=== PATIENT | male | born 1960 | race Hispanic/Latino ===

== ENCOUNTER 2016-11-26 00:07 | Inpatient (IN) | payer OTHER ==
[2016-11-26] MEDS ORDERED: ATROVENT IH ONE (00:58)
[2016-11-26] MEDS ORDERED: TYLENOL PO ONE (00:59)
[2016-11-26] MEDS ORDERED: PROVENTIL IH ONE (00:59)
[2016-11-26] MEDS ORDERED: KETALAR IV ONE ×2 (00:59→01:48)
[2016-11-26] MEDS ORDERED: ROCEPHIN/NS 1 GM/50 ML 50 ML IV ONE (01:01)
--- NOTE | 2016-11-26 01:07 | Emergency Department Report ---
ED General Adult HPI - General Chief complaint: Dyspnea/Respdistress Stated complaint: CHEST PAIN Time Seen by Provider: 11/26/16 00:38 Source: patient, EMS (ems notes not available at time of chart dictation), RN notes reviewed Mode of arrival: Stretcher Limitations: Physical Limitation - History of Present Illness Initial comments: This is a 56-year-old male, whom I have evaluated in the past. Has a past medical history of nonischemic cardiomyopathy, ejection fraction of 10-15%, COPD , hypertension, CVA, renal insufficiency. Patient presents to the ER complaining of chest pain, shortness of breath, back pain, fever and weakness. He reports that he is not currently on hospice therapy. Symptoms are constant. They have no exacerbating or relieving factors. -: Gradual Location: chest, back Severity scale (0 -10): 10 Quality: burning, stabbing, aching Consistency: constant Improves with: none Worsens with: none Associated Symptoms: chest pain, cough, fever/chills, loss of appetite, shortness of breath, weakness - Related Data Previous Rx's Medication Instructions Recorded Last Taken Type Aspirin [Aspirin TAB] 325 mg PO QDAY #30 tablet 06/13/16 Unknown Rx Furosemide [Lasix TAB] 40 mg PO QDAY #30 tablet 06/25/16 Unknown Rx Lisinopril [Zestril TAB] 20 mg PO QDAY #30 tablet 06/25/16 Unknown Rx Metoprolol [Lopressor TAB] 25 mg PO BID #60 tablet 06/25/16 Unknown Rx ISOSORBIDE MONOnitrate [Imdur ER] 30 mg PO QDAY #30 tablet 09/11/16 1 Day Ago Rx Lisinopril [Zestril TAB] 20 mg PO DAILY #30 tablet 09/11/16 1 Day Ago Rx Prednisone [predniSONE 10 mg 10 mg PO .TAPER #1 tab.ds.pk 09/11/16 1 Day Ago Rx (6-Day Pack, 21 Tabs)] Furosemide [Lasix TAB] 40 mg PO BID #60 tablet 09/16/16 Unknown Rx Furosemide [Lasix TAB] 40 mg PO 0600,1800 tablet 10/20/16 Unknown Rx oxyCODONE /ACETAMINOPHEN [Percocet 1 tab PO Q6H PRN #20 tablet 10/20/16 Unknown Rx 5/325 mg] Allergies Allergy/AdvReac Type Severity Reaction Status Date / Time No Known Allergies Allergy Unverified 02/25/16 10:55 ED Review of Systems ROS: Stated complaint: CHEST PAIN Other details as noted in HPI Constitutional: fever, malaise, weakness Eyes: denies: vision change ENT: denies: epistaxis Respiratory: cough, wheezing Cardiovascular: chest pain Gastrointestinal: denies: vomiting Genitourinary: as per HPI Musculoskeletal: back pain Skin: denies: lesions Neurological: weakness Psychiatric: anxiety ED Past Medical Hx - Past Medical History Hx Hypertension: Yes Hx CVA: Yes Hx Congestive Heart Failure: Yes Hx Diabetes: No Hx Renal Disease: Yes Hx Arthritis: Yes Hx Asthma: Yes Hx COPD: Yes Hx HIV: No Additional medical history: Urinary retention - Surgical History Hx Cholecystectomy: Yes Additional Surgical History: Hernia, - Social History Smoking Status: Never Smoker Substance Use Type: None - Medications Home Medications: Home Medications Medication Instructions Recorded Confirmed Last Taken Type Aspirin [Aspirin TAB] 325 mg PO QDAY #30 tablet 06/13/16 10/08/16 Unknown Rx Furosemide [Lasix TAB] 40 mg PO QDAY #30 tablet 06/25/16 10/08/16 Unknown Rx Lisinopril [Zestril TAB] 20 mg PO QDAY #30 tablet 06/25/16 10/08/16 Unknown Rx Metoprolol [Lopressor TAB] 25 mg PO BID #60 tablet 06/25/16 10/08/16 Unknown Rx ISOSORBIDE MONOnitrate [Imdur ER] 30 mg PO QDAY #30 tablet 09/11/16 09/15/16 1 Day Ago Rx Lisinopril [Zestril TAB] 20 mg PO DAILY #30 tablet 09/11/16 09/15/16 1 Day Ago Rx Prednisone [predniSONE 10 mg 10 mg PO .TAPER #1 tab.ds.pk 09/11/16 09/15/16 1 Day Ago Rx (6-Day Pack, 21 Tabs)] Furosemide [Lasix TAB] 40 mg PO BID #60 tablet 09/16/16 Unknown Rx Furosemide [Lasix TAB] 40 mg PO 0600,1800 tablet 10/20/16 Unknown Rx oxyCODONE /ACETAMINOPHEN [Percocet 1 tab PO Q6H PRN #20 tablet 10/20/16 Unknown Rx 5/325 mg] ED Physical Exam - General Limitations: Physical Limitation General appearance: alert, in distress - Head Head exam: Present: atraumatic, normocephalic - Eye Eye exam: Present: normal appearance - ENT ENT exam: Present: mucous membranes dry - Neck Neck exam: Present: normal inspection, full ROM. Absent: tenderness, meningismus - Respiratory Respiratory exam: Present: wheezes, rales, rhonchi. Absent: respiratory distress - Cardiovascular Cardiovascular Exam: Present: regular rate, normal rhythm, normal heart sounds. Absent: bradycardia, tachycardia, irregular rhythm, systolic murmur, diastolic murmur, rubs, gallop - GI/Abdominal GI/Abdominal exam: Present: soft, normal bowel sounds. Absent: distended, tenderness, guarding, rebound, rigid, pulsatile mass - Rectal Rectal exam: Present: deferred - Extremities Exam Extremities exam: Present: normal inspection, full ROM, normal capillary refill , pedal edema. Absent: calf tenderness - Back Exam Back exam: Present: normal inspection, full ROM, paraspinal tenderness. Absent : tenderness, CVA tenderness (R), CVA tenderness (L), muscle spasm - Neurological Exam Neurological exam: Present: alert, other (Extraocular movements intact. Tongue midline. No facial droop. Facial sensation intact to light touch in the V1, V2 , V3 distribution bilaterally. 5 and 5 strength in 4 extremities.. Sensation is intact to light touch in 4 extremities.). Absent: motor sensory deficit - Psychiatric Psychiatric exam: Present: anxious - Skin Skin exam: Present: warm, dry, intact, normal color. Absent: rash ED Course Vital Signs 11/26/16 11/26/16 11/26/16 00:31 00:59 01:45 Temperature 98.4 F 100.8 F H Pulse Rate 83 Pulse Rate [ 93 H Anterior Bilateral] Respiratory 16 Rate Respiratory 18 Rate [Anterior Bilateral] Blood Pressure 169/88 O2 Sat by Pulse 99 99 Oximetry 11/26/16 02:42 Temperature Pulse Rate Pulse Rate [ 97 H Anterior Bilateral] Respiratory Rate Respiratory 18 Rate [Anterior Bilateral] Blood Pressure O2 Sat by Pulse Oximetry - Reevaluation(s) Reevaluation #1: 11/26/16 01:04 Differential diagnosis: COPD exacerbation, asthma exacerbation, pneumonia, acute coronary syndrome, urinary tract infection Assessment and plan: 56-year-old male with fever to 100.8, respiratory distress , chest pain and back pain. Influenza swab is pending. Laboratory studies, chest x-ray, urinalysis, blood cultures pending. He will be treated empirically with albuterol, Atrovent, steroids, ceftriaxone, acetaminophen, and ketamine, 0.3 mg/kg IV for pain. The patient reports that he is not currently hospice. He states he is amenable to chest compressions, CPR, and intubation if needed. Reevaluation #2: 11/26/16 04:16 CT scan demonstrates discitis at T8 to T9, right pleural effusion, basilar atelectasis, infiltrate. Urinalysis suggests urinary tract infection. Hospital physician, Dr Hankins. accepts the patient to his service. Request vancomycin. He will order infectious disease consult. ED Medical Decision Making - Lab Data Result diagrams: 11/26/16 00:58 11/26/16 00:58 Vital Signs 11/26/16 11/26/16 00:31 00:59 Temperature 98.4 F 100.8 F H Pulse Rate 83 Respiratory 16 Rate Blood Pressure 169/88 O2 Sat by Pulse 99 99 Oximetry - EKG Data 11/26/16 01:06 normal sinus, 90 bpm, borderline left axis deviation, atrial enlargement, poor all with progression, QTC 496 ms, abnormal EKG, not morphologically consistent with STEMI, nonspecific changes when compared to prior EKG from 10/08/2060 - Radiology Data Radiology results: image reviewed interpreted by me: X-ray chest demonstrates cardiomegaly, pulmonary effusions, CHF ct chest: no PE +discitis + infiltrate Critical care attestation.: If time is entered above; I have spent that time in minutes in the direct care of this critically ill patient, excluding procedure time. ED Disposition Clinical Impression: Diskitis, Chest pain, Acute febrile illness, COPD exacerbation Disposition: OP ADMITTED IP TO THIS HOSP Is pt being admited?: Yes Does the pt Need Aspirin: Yes Condition: Stable Instructions: Chest Pain (ED), Chronic Obstructive Pulmonary Disease (ED) Referrals: PRIMARY CARE, [Primary Care Provider] - 3-5 Days
[2016-11-26 01:28] LABS: Basophils % (Auto) 1.2 % (0.0-1.8); Eosinophils % (Auto) 1.8 % (0.0-4.3); Hematocrit 44.3 % (35.5-45.6); Mean Corpuscular HGB Conc 32 % (32-34); Mean Corpuscular Hemoglobin 27 pg (28-32); Mean Corpuscular Volume 85 fl (84-94); Platelet Count 331 K/mm3 (140-440); Red Blood Count 5.24 M/mm3 (3.65-5.03); White Blood Count 14.4 K/mm3 (4.5-11.0)
[2016-11-26 01:44] LABS: Red Cell Distribution Width 20.3 % (13.2-15.2)
[2016-11-26 01:45] LABS: Blood Urea Nitrogen 14 mg/dL (9-20); Calcium 8.9 mg/dL (8.4-10.2); Carbon Dioxide 30 mmol/L (22-30); Chloride 99.5 mmol/L (98-107); Glucose 115 mg/dL (75-100); Potassium 3.4 mmol/L (3.6-5.0); Sodium 143 mmol/L (137-145)
[2016-11-26 01:47] LABS: Anion Gap 17 mmol/L
[2016-11-26 01:57] LABS: INR 1.02 (0.87-1.13); Partial Thromboplastin Time 29.7 Sec. (24.2-36.6)
[2016-11-26 02:58] LABS: Cholesterol 150 mg/dL (50-199); HDL Cholesterol 38 mg/dL (40-59); LDL Cholesterol,Direct 81 mg/dL (50-130); Triglycerides 155 mg/dL (2-149)
[2016-11-26] MEDS ORDERED: NACL ONE (03:21)
[2016-11-26 03:30] LABS: Bacteria,Urine 1+ /HPF (Negative); Bilirubin,Urine NEG (Negative); Blood,Urine LG (Negative); Ketones,Urine NEG (Negative); Leukocyte Esterase,Urine SM (Negative); Mucus,Urine FEW /HPF; Nitrite,Urine POS (Negative)
[2016-11-26 03:42] LABS: RBC,Urine > 182.0 /HPF (0.0-6.0)
--- NOTE | 2016-11-26 03:58 | Cat Scan Report ---
FINAL REPORT EXAM: CT ANGIO CHEST HISTORY: cp sob fever TECHNIQUE: CTA chest with IV contrast. MIP and MPR images. PRIORS: 08/08/2016 FINDINGS: No thoracic aortic aneurysm or dissection seen. Visualized portions of the upper abdomen show no significant abnormality. No pulmonary embolism seen. No pathologically enlarged lymph nodes seen. Right basilar atelectasis or infiltrate. Moderate size right pleural effusion. There are compression fractures from T6-T9, which were seen previously. Additionally at T9, there is extensive vertebral body destruction involving mostly the upper endplate, there is some destruction of the lower endplate of T8 as well which is new. Extensive paraspinal edema and abnormal soft tissue, compatible with discitis. Recommend follow-up MRI with gadolinium for further characterization. IMPRESSION: 1. Discitis, new since the prior study at T8-T9. Extensive paraspinal abnormal soft tissue, no discrete abscess. Recommend follow-up MRI with gadolinium of the thoracic spine. 2. Right pleural effusion, right basilar atelectasis or infiltrate.
[2016-11-26] MEDS ORDERED: VANCOMYCIN VIAL IV ONE (04:04)
[2016-11-26] MEDS ORDERED: MORPHINE IV ONE (04:04)
--- NOTE | 2016-11-26 04:51 | Event Note ---
Date: 11/26/16 See H/p in reports Acute Diskitis-T8/T9 Fever/Mid back pain Copd exacerbation UTI CHF HTN CAD general manager in training consult for placement
[2016-11-26] MEDS ORDERED: VANCOMYCIN PHARMACY TO DOSE IV SCH (05:00)
[2016-11-26] MEDS ORDERED: DUONEB 0.5 MG-3 MG/3 ML SOLN IH PRN (05:11)
[2016-11-26] MEDS ORDERED: PROVENTIL IH PRN (05:13)
[2016-11-26] MEDS ORDERED: VANCOMYCIN VIAL 1,000 MG in NACL 0.9% 250ML 250 ML IV SCH (06:00)
[2016-11-26] MEDS ORDERED: LASIX ONE ×2 (06:05→10:10)
[2016-11-26] MEDS ORDERED: SUBLIMAZE ONE (06:10)
[2016-11-26] MEDS: K-DUR PO SCH ×2 (06:29→18:25)
[2016-11-26] MEDS: VANCOMYCIN VIAL 1,250 MG in NACL 0.9% 250ML 250 ML IV SCH ×2 (06:29→18:51)
[2016-11-26] MEDS: LASIX PO SCH ×2 (06:29→18:23)
[2016-11-26] MEDS ORDERED: SUBLIMAZE IV ONE (06:49)
--- NOTE | 2016-11-26 08:09 | History and Physical Report ---
CHIEF COMPLAINT: 1. Increasing shortness of breath for 2 days. 2. Increasing back pain, especially midback pain for the last 3-4 days. 3. Low grade fever present. HISTORY OF PRESENT ILLNESS: A 56-year-old male with multiple medical problems including hypertension, coronary artery disease, COPD and CHF, was on hospice till recently. He discharged himself from hospice 2 days ago. The patient has cardiomyopathy and ejection fraction of 10-15% along with COPD and hypertension. Comes to the ER because of increasing shortness of breath and severe back pain associated with low grade fever for the past 4-5 days, moreso for the last 2 days. The patient stated that he has not discharged himself from hospice therapy. Midback pain is about 10 on a scale of 1-10. No exacerbating or relieving factors. Wants something strong for pain management. On Percocet 5/325 mg p.o. q.6h. p.r.n. till now. Fever in the range of 99-101. Wheezing is present. PAST MEDICAL HISTORY: As mentioned, significant for hypertension, cerebrovascular accident, congestive heart failure, COPD, urinary retention in the past, and asthma. PAST SURGICAL HISTORY: Cholecystectomy and hernia. SOCIAL HISTORY: He used to be a smoker. FAMILY HISTORY: Significant for hypertension. CURRENT MEDICATIONS: Aspirin 325 mg p.o. daily, Lasix 40 mg p.o. daily, lisinopril 20 mg p.o. daily, metoprolol 25 mg b.i.d., isosorbide mononitrate 30 mg p.o. daily, lisinopril 20 mg p.o. daily, prednisone 10 mg p.o. daily, Lasix 40 mg twice a day in the past, and Percocet 5/325 mg p.o. q.6h. p.r.n. REVIEW OF SYSTEMS: Significant for; CONSTITUTIONAL: Low-grade fevers and severe midback pain present. No weight loss. HEENT: No sore throat. No postnasal drip. No diplopia. No ear pain. CVS AND RESPIRATORY: Shortness of breath on minimal exertion present. Slight wheezing present. No chest pain. No PND attacks. No orthopnea. GASTROINTESTINAL: No nausea, no vomiting, no diarrhea. MUSCULOSKELETAL: No joint pains. BACK: Has severe midback pain, 10/10. DEVELOPER RELATIONS MANAGER: No syncope, no seizures. PSYCHIATRIC: The patient is anxious, but not depressed. No homicidal or suicidal ideation. SKIN: No rashes. HEMATOLOGY AND LYMPHATICS: No easy bruising. No lymphadenopathy. A 14-point review of systems is done, otherwise negative. The main component of review of systems positive however for shortness of breath and midback pain with low grade fever. PHYSICAL EXAMINATION: GENERAL: Middle-aged male, looks older than his age. VITAL SIGNS: Temperature 100.8, blood pressure is 169/88, respiratory rate is 16, pulse is 93. HEENT: Unremarkable. Pupils equal and reactive. NECK: Supple, no lymphadenopathy, no thyromegaly. CHEST AND LUNGS: Bilateral rhonchi present both expiratory and inspiratory. CVS: S1, S2 heard. No gallop, no murmur, no rub. Apical impulse in left fifth intercostal space and midclavicular line. ABDOMEN: Soft and benign. No hepatosplenomegaly. No guarding, no rigidity. MUSCULOSKELETAL: Tenderness in the midback around T7, T8, T9 region present. EXTREMITIES: Good pedal pulses. No pedal edema. DEVELOPER RELATIONS MANAGER: Alert and oriented x 4, nonfocal exam. SKIN: Normal. LABORATORY DATA: Significant for white count of 14,400. Potassium is 3.4, BUN and creatinine is 14 and 0.7, glucose is 115. EKG shows normal sinus rhythm, heart rate of 90 per minute, left axis deviation, atrial enlargement, QTC 496 milliseconds. Abnormal EKG, not morphologically consistent with STEMI. Nonspecific changes when compared to prior EKG from 10/08/2016. CT of the chest shows T8-T9 discitis and right pleural effusion, basilar atelectasis/infiltrate. Urinalysis suggests high WBC count, around 99.0. Urine RBC more than 182. CT angiogram incidentally shows compression fractures from T6-T9, which were seen previously. Additionally at T9, there is extensive vertebral body distraction involving mostly the upper endplate. There is some distraction of the lower endplate of T8 as well, which is now an extensive paraspinal edema and abnormal soft tissue compatible with discitis. ASSESSMENT AND PLAN: 1. T8/T9 discitis. Had symptoms of midback pain and fever consistent with a diagnosis of discitis. The patient was started on IV vancomycin 1 gram q.12h. Also Rocephin incidentally for the urinary tract infection. We will consult ID for further help with the treatment of discitis. The question is whether to involve the Neurosurgery for the discitis, but will defer to ID at this point. 2. Chronic obstructive pulmonary disease exacerbation. The patient was started on DuoNebs and low dose Solu-Medrol of 40 mg q.8h. Also, started on Rocephin 2 grams IV piggyback q.24h. 3. Urinary tract infection. Same Rocephin 2 grams IV piggyback q.24h. to continue. 4. Congestive heart failure. The patient on Lasix 40 mg q.12h. There is no CHF exacerbation. We will continue Lasix at 40 mg q.12h. 5. Hypertension. Continue lisinopril 20 mg p.o. daily. 6. Coronary artery disease. Continue isosorbide mononitrate. 7. Hypertension. Continue metoprolol and lisinopril. Lisinopril 20 mg and metoprolol 25 mg twice a day. 8. Deep venous thrombosis prophylaxis. Lovenox 40 mg subcutaneous daily. 9. Pain management. The patient started on Dilaudid 1 mg q.3h. p.r.n. for control of pain. The patient is severe pain secondary to discitis. DISCHARGE PLANNING. The patient was in hospice before he discharged himself from hospice. Case management to look into further options about placement. JOB# [id number] DAY/ALEJANDRO
--- NOTE | 2016-11-26 08:54 | Admit Criteria Form ---
Admission Criteria Documentation: COPD Clinical Indications for Admission to Inpatient Care (Place 'X' for any and all applicable criteria): Admission is indicated for ANY ONE of the following (1)(2)(3): [ ]I. Acute exacerbation by high-risk comorbidity (e.g., pneumonia, dysrhythmia, heart failure, pleural effusion, pneumothorax) or severe underlying COPD (e.g., steroid dependent) [X ]II. Inpatient admission required rather than observation care (see Chronic Obstructive Pulmonary Disease: Observation Care) because of ANY ONE of the following: [X ]a) New or pre-existing signs or symptoms of COPD (eg, dyspnea or Tachypnea at rest or with minimal activity) that persist despite outpatient and observation care treatment [ ]b) New-onset hypoxemia (room air SaO2 less than 90%, PO2 less than 60 mm Hg (8.0 kPa)) that persists despite outpatient and observation care treatment [ ]c) Worsening of pre-existing hypoxemia (eg, new or increased requirement for supplemental oxygen to maintain oxygenation at baseline level) that persists despite outpatient and observation care treatment, with oxygen treatment needs performable only in acute inpatient setting [ ]d) Hypercarbia (PCO2 greater than 40 mm Hg (5.3 kPa))-induced respiratory acidosis (pH less than 7.35) that persists despite outpatient and observation care treatment [ ]e) Supplemental oxygen or respiratory treatments for over 24 hours that are performable only in acute inpatient setting [ ]f) Chest tube placement with active evacuation (e.g., suction, drainage) (5) [ ]g) Other condition, treatment or monitoring requiring inpatient admission [ ]III. Planned invasive surgical or diagnostic procedures requiring acute- care hospitalization [ ]IV. Acute respiratory failure (e.g., uncompensated hypercarbia, severe hypoxemia) [ ]V. Severe comorbid condition (e.g., severe steroid myopathy, acute vertebral fracture) that has acutely worsened pulmonary function [ ]. Confusion state, lethargy, obtundation, stupor or coma Extended stay beyond goal length of stay may be needed for (31)(32): [ ]a ) Respiratory Failure. [ ]b) Severe or persisting hypoxemia or hypercarbia [ ]c) Severe or persistent dyspnea [ ]d) Comorbidities (e.g. chronic heart failure, atrial fibrillation with rapid response, pneumonia) [ ]e) Malnutrition The original [facility] content created by [facility] has been revised. The portions of the content which have been revised are identified through the use of italic text or in bold, and [facility] has neither reviewed nor approved the modified material. All other unmodified content is copyright [facility]. Please see references footnoted in the original [facility] edition 2016 Admission Criteria Met: Yes
--- NOTE | 2016-11-26 09:30 | XRay Report ---
PORTABLE CHEST: INDICATION: Shortness of breath. COMPARISON: 10/12/2016 FINDINGS: Portable, frontal chest radiograph suggests improved pulmonary vascular congestion with overall smaller heart size, though mild cardiomegaly persists. Small right pleural effusion blunting the lateral costophrenic angle again noted with remainder of the diaphragm now visible. Lesser fluid or thickening along the right minor fissure. Slight aortic knob calcifications. EKG leads. Stable bones. CONCLUSION: Improved CHF and overall heart size, though mild cardiomegaly and small right pleural effusion persists, as detailed above. Thank you for the opportunity to participate in this patient's care.
[2016-11-26] MEDS: DUONEB 0.5 MG-3 MG/3 ML SOLN IH SCH ×3 (09:42→19:22)
[2016-11-26] MEDS ORDERED: TYLENOL PO PRN (09:57)
[2016-11-26] MEDS ORDERED: ZOFRAN IV PRN (09:57)
[2016-11-26] MEDS ORDERED: DULCOLAX PR PRN (09:57)
[2016-11-26] MEDS ORDERED: MILK OF MAGNESIA PO PRN (09:57)
[2016-11-26] MEDS: ZOFRAN IV PRN (10:08)
[2016-11-26] MEDS: DILAUDID IV PRN ×4 (10:10→21:52)
[2016-11-26] MEDS: ASPIRIN PO SCH (10:17)
[2016-11-26] MEDS: LOPRESSOR PO SCH ×2 (10:17→21:57)
[2016-11-26] MEDS: ZESTRIL PO SCH (10:17)
[2016-11-26] MEDS: ROCEPHIN/NS 2 GM/100 ML 100 ML IV SCH (10:55)
--- NOTE | 2016-11-26 12:29 | Consultation ---
History of Present Illness - Reason for Consult Consult date: 11/26/16 T8T9 diskitis Requesting physician: SHAHRAM RATLIFF - History of Present Illness This is a 6 year old man with COPD, CHF (EF 10-15%) who was recently enrolled in hospice care, he left hospice on 11/23/16. He did not want to in hospice and preferred to around family members in [place]. The evening he left he started to develop severe 10/10 mid back pain without radiation. He said he does not usually have back pain. He did not have pain medications to control the pain therefore he came to the ER. A CT scan in the ER revealed T6-T9 compression fractures, T9 vertebral body destruction involving mostly the upper endplate, some destruction of the lower endplate of T8 with associated paraspinal edema. He was started on vancomycin and ceftriaxone, infectious disease was called to evaluate Past History Past Medical History: COPD, other (CHF, asthma) Past Surgical History: cholecystectomy Social history: single, alcohol abuse (daily beer). denies: smoking Medications and Allergies Allergies Allergy/AdvReac Type Severity Reaction Status Date / Time No Known Allergies Allergy Unverified 02/25/16 10:55 Home Medications Medication Instructions Recorded Confirmed Last Taken Type Aspirin [Aspirin TAB] 325 mg PO QDAY #30 tablet 06/13/16 10/08/16 Unknown Rx Furosemide [Lasix TAB] 40 mg PO QDAY #30 tablet 06/25/16 10/08/16 Unknown Rx Lisinopril [Zestril TAB] 20 mg PO QDAY #30 tablet 06/25/16 10/08/16 Unknown Rx Metoprolol [Lopressor TAB] 25 mg PO BID #60 tablet 06/25/16 10/08/16 Unknown Rx ISOSORBIDE MONOnitrate [Imdur ER] 30 mg PO QDAY #30 tablet 09/11/16 09/15/16 1 Day Ago Rx Lisinopril [Zestril TAB] 20 mg PO DAILY #30 tablet 09/11/16 09/15/16 1 Day Ago Rx Prednisone [predniSONE 10 mg 10 mg PO .TAPER #1 tab.ds.pk 09/11/16 09/15/16 1 Day Ago Rx (6-Day Pack, 21 Tabs)] Furosemide [Lasix TAB] 40 mg PO BID #60 tablet 09/16/16 Unknown Rx Furosemide [Lasix TAB] 40 mg PO 0600,1800 tablet 10/20/16 Unknown Rx oxyCODONE /ACETAMINOPHEN [Percocet 1 tab PO Q6H PRN #20 tablet 10/20/16 Unknown Rx 5/325 mg] Active Meds: Active Medications Acetaminophen (Tylenol) 650 mg PO Q4H PRN PRN Reason: Pain MILD(1-3)/Fever >100.5/LOZADA Albuterol (Proventil) 2.5 mg IH Q4HRT PRN PRN Reason: Shortness Of Breath Albuterol/Ipratropium (Duoneb 0.5 Mg-3 Mg/3 Ml Soln) 1 ampul IH Q6HRT [facility] Last Admin: 11/26/16 09:42 Dose: 1 ampul Aspirin (Aspirin) 325 mg PO QDAY [facility] Last Admin: 11/26/16 10:17 Dose: 325 mg Bisacodyl (Dulcolax) 10 mg [place] QDAY PRN PRN Reason: Constipation unrelieved by MOM Enoxaparin Sodium (Lovenox) 40 mg SUB-Q QDAY@2200 [facility] Furosemide (Lasix) 40 mg PO 0600,1800 [facility] Last Admin: 11/26/16 06:29 Dose: 40 mg Hydromorphone HCl (Dilaudid) 1 mg IV Q3H PRN PRN Reason: Pain , Severe (7-10) Last Admin: 11/26/16 10:10 Dose: 1 mg Vancomycin HCl 1,250 mg/ (Sodium Chloride) 250 mls @ 166.667 mls/hr IV Q12H [facility] Last Admin: 11/26/16 06:29 Dose: 166.667 mls/hr Ceftriaxone Sodium (Rocephin/Ns 2 Gm/100 Ml) 100 mls @ 200 mls/hr IV Q24HR [facility] PRN Reason: Protocol Last Admin: 11/26/16 10:55 Dose: Not Given Isosorbide Mononitrate (Imdur) 30 mg PO QDAY [facility] Lisinopril (Zestril) 20 mg PO DAILY [facility] Last Admin: 11/26/16 10:17 Dose: 20 mg Magnesium Hydroxide (Milk Of Magnesia) 30 ml PO Q4H PRN PRN Reason: Constipation Methylprednisolone Sodium Succinate (Solu-Medrol) 40 mg IV Q8HR [facility] Last Admin: 11/26/16 06:29 Dose: 40 mg Metoprolol Tartrate (Lopressor) 25 mg PO BID [facility] Last Admin: 11/26/16 10:17 Dose: 25 mg Ondansetron HCl (Zofran) 4 mg IV Q3H PRN PRN Reason: Nausea And Vomiting Last Admin: 11/26/16 10:08 Dose: 4 mg Ondansetron HCl (Zofran) 4 mg IV Q8H PRN PRN Reason: N/V unrelieved by Reglan Potassium Chloride (K-Dur) 20 meq PO Q12H [facility] Last Admin: 11/26/16 06:29 Dose: 20 meq Vancomycin HCl (Vancomycin Pharmacy To Dose) 1 each IV PKCONSULT [facility] PRN Reason: Protocol Review of Systems Constitutional: weight loss (loss of fluid), fever, no weight gain, no chills, no fatigue, no weakness Ears, nose, mouth and throat: no ear pain, no ear discharge, no tinnitis, no dental pain, no mouth pain Cardiovascular: shortness of breath, no orthopnea, no palpitations, no dyspnea on exertion Respiratory: no cough with sputum, no excessive sputum, no hemoptysis, no wheezing Gastrointestinal: no nausea, no vomiting, no diarrhea, no hematochezia Genitourinary Male: no hematuria, no discharge, no urinary frequency, no genital pain Musculoskeletal: low back pain (mid back pain), no neck pain, no shooting arm pain, no morning stiffness, no muscle weakness, no muscle cramps Integumentary: no rash, no pruritis, no sores, no bullae, no lesions Neurological: no weakness, no numbness, no migraines, no convulsions Physical Examination - Constitutional Vitals: Selected Entries 11/26/16 11/26/16 11/26/16 00:31 00:59 09:59 Temperature 98.4 F 100.8 F H Pulse Rate Respiratory 18 Rate [Anterior Bilateral] Blood Pressure Blood Pressure Mean 11/26/16 10:17 Temperature Pulse Rate 82 Respiratory Rate [Anterior Bilateral] Blood Pressure 149/87 Blood Pressure 107 Mean General appearance: Present: no acute distress, well-nourished - EENT Eyes: Present: PERRL, EOM intact. Absent: scleral icterus, conjunctival injection ENT: hearing intact, clear oral mucosa, poor dentition - Neck Neck: Present: supple, normal ROM. Absent: enlarged thyroid, masses or JVD - Respiratory Respiratory: bilateral: CTA - Cardiovascular Rhythm: regularly irregular Heart Sounds: Present: S1 & S2 - Extremities Extremities: no ischemia, pulses intact Extremity abnormal: edema - Abdominal General gastrointestinal: Present: soft, non-tender, normal bowel sounds Male genitourinary: Present: deferred - Rectal Rectal Exam: deferred - Integumentary Integumentary: Present: clear, warm, dry. Absent: jaundice, rash - Musculoskeletal Musculoskeletal: strength equal bilaterally - Psychiatric Psychiatric: cooperative - Additional findings Additional findings: mid thoracic spine tenderness, no erythema Results - Labs CBC & Chem 7: 11/27/16 04:26 11/27/16 04:26 Labs: Microbiology 11/26/16 02:20 Nasopharyngeal Swab Influenza Types A,B Antigen (CHRISTA) - Final 11/26/16 01:41 Peripheral/Venous Blood Culture - Preliminary Culture in Progress 11/26/16 01:41 Peripheral/Venous Blood Culture - Preliminary Culture in Progress Laboratory Tests 11/26/16 11/26/16 11/26/16 00:58 00:58 01:07 WBC 14.4 H Plt Count 331 INR Creatinine 0.7 L Estimated GFR > 60 Lactic Acid 2.2 H* Total Creatine Kinase NT-Pro-B Natriuret Pep Urine Bilirubin Urine WBC (Auto) Urine RBC (Auto) 11/26/16 11/26/16 11/26/16 01:07 01:07 01:07 WBC Plt Count INR 1.02 Creatinine Estimated GFR Lactic Acid Total Creatine Kinase 47 L NT-Pro-B Natriuret Pep 1090 H Urine Bilirubin Urine WBC (Auto) Urine RBC (Auto) 11/26/16 02:47 WBC Plt Count INR Creatinine Estimated GFR Lactic Acid Total Creatine Kinase NT-Pro-B Natriuret Pep Urine Bilirubin Neg Urine WBC (Auto) 99.0 H Urine RBC (Auto) > 182.0 Assessment and Plan Antibiotics: 1) ceftriaxone 2gm iv Q24H( 11/26 2) Vancomcyin 1250mg iv Q12H (11/26 This is a 56 year old man with end stage heart failure (EF 10-15%), COPD and alcohol abuse who presented on 11/25/16 after leaving hospice care on 11/23/16. He said they informed him that he did not have much longer to live, he then decided to elope from hospice. He is now complaining of severe mid back pain with associated fevers. CT scan revealed diskitis at T8-T9 with paraspinal abnormal soft tissue. 1) T8-T9 diskitis with paraspinal inflammation in a patient with end stage heart disease. Patient does have back pain with fevers. Ideally the best approach here would be to obtain aspiration at that spinal level or paraspinal area for culture to guide treatment. Without culture the only choice would be to treat empirically for the most common causes of diskitis/osteomyelitis. Would obtain neurosurgery input. 2) leukocytosis, most likely related to # 1 3) End stage heart failure with EF 10-15% Plan: 1) obtain neurosurgery input 2) obtain MRI of thoracic spine to further detail the paraspinal findings, if there is fluid, could aspirate for culture 3) follow up blood cultures 4) obtain CRP 5) continue vancomycin and ceftriaxone for now 6) if MRI has paraspinal fluid, will have IR do aspiration to guide treatment
[2016-11-26] MEDS: IMDUR PO SCH (14:06)
[2016-11-26] MEDS: LOVENOX SUB-Q SCH (21:57)
[2016-11-27] MEDS: DUONEB 0.5 MG-3 MG/3 ML SOLN IH SCH ×4 (01:57→20:00)
[2016-11-27] MEDS: DILAUDID IV PRN ×7 (02:29→23:19)
[2016-11-27] MEDS: VANCOMYCIN VIAL 1,250 MG in NACL 0.9% 250ML 250 ML IV SCH ×2 (05:29→18:10)
[2016-11-27] MEDS: K-DUR PO SCH (05:33)
[2016-11-27] MEDS: LASIX PO SCH ×2 (05:34→18:07)
[2016-11-27 05:49] LABS: Alanine Aminotransferase 11 units/L (7-56); Albumin 2.9 g/dL (3.9-5); Albumin/Globulin Ratio 0.8 %; Alkaline Phosphatase 118 units/L (35-129); Anion Gap 19 mmol/L; BUN/Creatinine Ratio 41.25; Bilirubin,Total 0.2 mg/dL (0.1-1.2); Blood Urea Nitrogen 33 mg/dL (9-20); Calcium 8.1 mg/dL (8.4-10.2); Carbon Dioxide 26 mmol/L (22-30); Chloride 98.8 mmol/L (98-107); Glucose 159 mg/dL (75-100); Potassium 5.4 mmol/L (3.6-5.0); Sodium 138 mmol/L (137-145); Total Protein 6.4 g/dL (6.3-8.2)
[2016-11-27 05:54] LABS: Basophils % (Auto) 0.1 % (0.0-1.8); Hematocrit 32.8 % (35.5-45.6); Hemoglobin 10.4 gm/dl (11.8-15.2); Mean Corpuscular HGB Conc 32 % (32-34); Mean Corpuscular Hemoglobin 27 pg (28-32); Mean Corpuscular Volume 85 fl (84-94); Platelet Count 280 K/mm3 (140-440); Red Blood Count 3.88 M/mm3 (3.65-5.03); Red Cell Distribution Width 19.8 % (13.2-15.2); White Blood Count 16.7 K/mm3 (4.5-11.0)
[2016-11-27] MEDS: ZESTRIL PO SCH (09:15)
[2016-11-27] MEDS: LOPRESSOR PO SCH ×2 (09:15→22:38)
[2016-11-27] MEDS: IMDUR PO SCH (09:18)
[2016-11-27] MEDS: ASPIRIN PO SCH (09:19)
--- NOTE | 2016-11-27 09:57 | Progress Note ---
Assessment and Plan Assessment and plan: 56M who eloped from hospice 2 days prior to presentation when he realized that he may not live much longer. He presented with SOB, wheezing, DAI, cough and Mid back pain 1. T9/T9 diskitis already on steroids and pain meds, obtain MR T spine with [place], may need to be transferred for neurosurg evaluation 2. Sepsis due to PNA- Right sided infiltrate w R moderate pleural effusion -continue abx, will fup up with imaging to consider thoracentesis tomorrow, NPO after MN 3. CHF EF 15% continue lasix IV, optimize meds 4. COPD exacerbation steroids, nebs and abx as above 5. HTN continue home meds 6. UTI continue abx, fup urine cultures 7. Hyperkalemia -dc K supplement History Interval history: SOB and cough is improved, continues to have dull mid back pain, 06/18 Hospitalist Physical - Physical exam Narrative exam: General: appears chronically ill HEENT: MMM, EOMI cardiac: S1-S2 heard lungs: Right base dullness, occasional crackles and expiratory wheezing abdomen: soft, nontender, nondistended bowel sounds positive mid back tenderness along the spine extremities: no edema clubbing or cyanosis Skin: no rash or lesion Neuro: no focal deficit Psych: appropriate behavior and mood, cognition intact - Constitutional Vitals: Temp Pulse Resp BP Pulse Ox 97.9 F 54 L 20 115/74 95 11/27/16 07:38 11/27/16 09:15 11/27/16 07:38 11/27/16 09:15 11/27/16 07:38 Results - Labs CBC & Chem 7: 11/27/16 04:26 11/27/16 04:26 Labs: Laboratory Last Values WBC 16.7 K/mm3 (4.5-11.0) H 11/27/16 04:26 RBC 3.88 M/mm3 (3.65-5.03) 11/27/16 04:26 Hgb 10.4 gm/dl (11.8-15.2) L D 11/27/16 04:26 Hct 32.8 % (35.5-45.6) L D 11/27/16 04:26 MCV 85 fl (84-94) 11/27/16 04:26 MCH 27 pg (28-32) L 11/27/16 04:26 MCHC 32 % (32-34) 11/27/16 04:26 RDW 19.8 % (13.2-15.2) H 11/27/16 04:26 Plt Count 280 K/mm3 (140-440) 11/27/16 04:26 Lymph % (Auto) 7.0 % (13.4-35.0) L 11/27/16 04:26 Will % (Auto) 3.5 % (0.0-7.3) 11/27/16 04:26 Eos % (Auto) 0.0 % (0.0-4.3) 11/27/16 04:26 Baso % (Auto) 0.1 % (0.0-1.8) 11/27/16 04:26 Lymph # 1.2 K/mm3 (1.2-5.4) 11/27/16 04:26 Will # 0.6 K/mm3 (0.0-0.8) 11/27/16 04:26 Eos # 0.0 K/mm3 (0.0-0.4) 11/27/16 04:26 Baso # 0.0 K/mm3 (0.0-0.1) 11/27/16 04:26 Seg Neutrophils % 89.4 % (40.0-70.0) H 11/27/16 04:26 Seg Neutrophils # 15.0 K/mm3 (1.8-7.7) H 11/27/16 04:26 PT 13.3 Sec. (12.2-14.9) 11/26/16 01:07 INR 1.02 (0.87-1.13) 11/26/16 01:07 APTT 29.7 Sec. (24.2-36.6) 11/26/16 01:07 Sodium 138 mmol/L (137-145) 11/27/16 04:26 Potassium 5.4 mmol/L (3.6-5.0) H D 11/27/16 04:26 Chloride 98.8 mmol/L (98-107) 11/27/16 04:26 Carbon Dioxide 26 mmol/L (22-30) 11/27/16 04:26 Anion Gap 19 mmol/L 11/27/16 04:26 BUN 33 mg/dL (9-20) H 11/27/16 04:26 Creatinine 0.8 mg/dL (0.8-1.5) 11/27/16 04:26 Estimated GFR > 60 ml/min 11/27/16 04:26 BUN/Creatinine Ratio 41.25 % 11/27/16 04:26 Glucose 159 mg/dL (75-100) H 11/27/16 04:26 Lactic Acid 2.2 mmol/L (0.7-2.0) H* 11/26/16 01:07 Calcium 8.1 mg/dL (8.4-10.2) L 11/27/16 04:26 Total Bilirubin 0.2 mg/dL (0.1-1.2) 11/27/16 04:26 AST 16 units/L (5-40) 11/27/16 04:26 ALT 11 units/L (7-56) 11/27/16 04:26 Alkaline Phosphatase 118 units/L (35-129) 11/27/16 04:26 Total Creatine Kinase 47 units/L (55-170) L 11/26/16 01:07 Troponin T 0.048 ng/mL (0.00-0.029) H 11/26/16 00:58 C-Reactive Protein 2.90 mg/dL (0.00-1.30) H 11/26/16 13:30 NT-Pro-B Natriuret Pep 1090 pg/mL (0-900) H 11/26/16 01:07 Total Protein 6.4 g/dL (6.3-8.2) 11/27/16 04:26 Albumin 2.9 g/dL (3.9-5) L 11/27/16 04:26 Albumin/Globulin Ratio 0.8 % 11/27/16 04:26 Triglycerides 155 mg/dL (2-149) H 11/26/16 00:58 Cholesterol 150 mg/dL (50-199) 11/26/16 00:58 LDL Cholesterol Direct 81 mg/dL (50-130) 11/26/16 00:58 HDL Cholesterol 38 mg/dL (40-59) L 11/26/16 00:58 Cholesterol/HDL Ratio 3.94 % 11/26/16 00:58 Urine Color Red (Yellow) 11/26/16 02:47 Urine Turbidity Slightly-cloudy (Clear) 11/26/16 02:47 Urine pH 7.0 (5.0-7.0) 11/26/16 02:47 Ur Specific [place] 1.025 (1.003-1.030) 11/26/16 02:47 Urine Protein 100 mg/dl mg/dL (Negative) 11/26/16 02:47 Urine Glucose (UA) Neg mg/dL (Negative) 11/26/16 02:47 Urine Ketones Neg mg/dL (Negative) 11/26/16 02:47 Urine Blood Lg (Negative) 11/26/16 02:47 Urine Nitrite Pos (Negative) 11/26/16 02:47 Urine Bilirubin Neg (Negative) 11/26/16 02:47 Urine Urobilinogen 4.0 mg/dL (<2.0) 11/26/16 02:47 Ur Leukocyte Esterase Sm (Negative) 11/26/16 02:47 Urine WBC (Auto) 99.0 /HPF (0.0-6.0) H 11/26/16 02:47 Urine RBC (Auto) > 182.0 /HPF (0.0-6.0) 11/26/16 02:47 U Epithel Cells (Auto) 1.0 /HPF (0-13.0) 11/26/16 02:47 Urine Bacteria (Auto) 1+ /HPF (Negative) 11/26/16 02:47 Urine Mucus Few /HPF 11/26/16 02:47
[2016-11-27] MEDS: ROCEPHIN/NS 2 GM/100 ML 100 ML IV SCH (11:17)
--- NOTE | 2016-11-27 11:20 | Progress Note ---
Assessment and Plan Antibiotics: 1) ceftriaxone 2gm iv Q24H( 11/26 2) Vancomcyin 1250mg iv Q12H (11/26 This is a 56 year old man with end stage heart failure (EF 10-15%), COPD and alcohol abuse who presented on 11/25/16 after leaving hospice care on 11/23/16. He said they informed him that he did not have much longer to live, he then decided to elope from hospice. He is now complaining of severe mid back pain with associated fevers. CT scan revealed diskitis at T8-T9 with paraspinal abnormal soft tissue. 1) T8-T9 diskitis with paraspinal inflammation in a patient with end stage heart disease. Patient does have back pain with fevers. Ideally the best approach here would be to obtain aspiration at that spinal level or paraspinal area for culture to guide treatment. Without culture the only choice would be to treat empirically for the most common causes of diskitis/osteomyelitis. Would obtain neurosurgery input. -patient with continued back pain, would like the MRI to evaluate the T8-T9 diskitis, if fluid is present would ask IR to do an aspiration 2) leukocytosis, most likely related to # 1, remains elevated 3) End stage heart failure with EF 10-15%, patient was previously in hospice but walked out Plan: 1) obtain neurosurgery input 2) follow up MRI of thoracic spine to further detail the paraspinal findings, if there is fluid, could aspirate for culture 3) follow up blood cultures 4) continue vancomycin and ceftriaxone for now 5) if MRI has paraspinal fluid, will have IR do aspiration to guide treatment Subjective Date of service: 11/27/16 Principal diagnosis: T8-T9 diskitis Interval history: Patient is still complaining of 10/10 back pain Objective - Constitutional Vitals: Vital Signs Temp Pulse Resp BP Pulse Ox 97.9 F 54 L 20 115/74 95 11/27/16 07:38 11/27/16 09:15 11/27/16 07:38 11/27/16 09:15 11/27/16 07:38 Temperature -Last 24 Hours Temperature 97.9 F Temperature 97.8 F Temperature 98.2 F General appearance: Present: no acute distress, well-nourished, obese - EENT Eyes: PERRL, EOM intact, no scleral icterus, no conjunctival injection ENT: hearing intact, clear oral mucosa, poor dentition Ears: bilateral: normal - Neck Neck: supple, normal ROM, no enlarged thyroid, no masses or JVD - Respiratory Respiratory effort: normal Respiratory: bilateral: CTA - Breasts Breasts: deferred - Cardiovascular Rhythm: regularly irregular Heart Sounds: Present: S1 & S2 Extremities: no ischemia, pulses intact Extremity abnormal: edema - Gastrointestinal General gastrointestinal: Present: soft, non-tender, normal bowel sounds Rectal Exam: deferred - Genitourinary Male genitourinary: deferred - Integumentary Integumentary: clear, warm, dry, no jaundice, no rash - Labs CBC & Chem 7: 11/27/16 04:26 11/27/16 04:26 Labs: Abnormal lab results 11/26/16 11/27/16 11/27/16 Range/Units 13:30 04:26 04:26 WBC 16.7 H (4.5-11.0) K/mm3 Hgb 10.4 L D (11.8-15.2) gm/dl Hct 32.8 L D (35.5-45.6) % MCH 27 L (28-32) pg RDW 19.8 H (13.2-15.2) % Lymph % (Auto) 7.0 L (13.4-35.0) % Seg Neutrophils % 89.4 H (40.0-70.0) % Seg Neutrophils # 15.0 H (1.8-7.7) K/mm3 Potassium 5.4 H D (3.6-5.0) mmol/L BUN 33 H (9-20) mg/dL Glucose 159 H (75-100) mg/dL Calcium 8.1 L (8.4-10.2) mg/dL C-Reactive Protein 2.90 H (0.00-1.30) mg/dL Albumin 2.9 L (3.9-5) g/dL
[2016-11-27] MEDS: ROXICODONE PO PRN ×2 (12:55→18:07)
--- NOTE | 2016-11-27 17:19 | Cat Scan Report ---
FINAL REPORT EXAM: CT ABDOMEN PELVIS WO CON HISTORY: flank pain, concern for kidney stones TECHNIQUE: CT abdomen and pelvis without contrast PRIORS: Correlated with prior CT chest of November 26, [address] abdomen and pelvis of October 13, 2016 FINDINGS: Bony destructive changes T9 are noted with paraspinal soft tissue density consistent with discitis/osteomyelitis. This was noted on the prior CT chest There is small right pleural effusion and infiltrate versus atelectasis in the right lower lobe. No focal abnormality identified within the liver parenchyma. The patient is status post cholecystectomy. The spleen demonstrates normal size and attenuation. No pancreatic abnormalities seen. Kidneys demonstrate no evidence of hydronephrosis or nephrolithiasis. No ureteral calculus identified. The adrenal glands are unremarkable. Abdominal aorta is normal in caliber. No pathologically enlarged lymph nodes are identified. No signs of free fluid or free air No evidence of small bowel dilatation. Small umbilical hernia noted. No bowel loops within hernia sac There is a calculus within the urinary bladder 2.7 x 2.0 centimeters which was present previously bladder is nondistended. No pericolonic inflammatory changes are identified. Colon is nondistended. IMPRESSION: Findings consistent with discitis/osteomyelitis at T8-T9 which was noted on the prior CT chest Small effusion with infiltrate or atelectasis in the right lower lobe 2.7 centimeter bladder stone. Small umbilical hernia. No bowel loops within hernia sac
[2016-11-27] MEDS: LOVENOX SUB-Q SCH (22:38)
[2016-11-28] MEDS: ZOFRAN IV PRN (00:16)
[2016-11-28] MEDS: DUONEB 0.5 MG-3 MG/3 ML SOLN IH SCH ×4 (01:57→21:21)
[2016-11-28 05:41] LABS: Hematocrit 32.2 % (35.5-45.6); Mean Corpuscular HGB Conc 31 % (32-34); Mean Corpuscular Hemoglobin 27 pg (28-32); Mean Corpuscular Volume 86 fl (84-94); Platelet Count 276 K/mm3 (140-440); Red Blood Count 3.74 M/mm3 (3.65-5.03)
[2016-11-28 05:48] LABS: Blood Urea Nitrogen 36 mg/dL (9-20); Calcium 8.3 mg/dL (8.4-10.2); Carbon Dioxide 29 mmol/L (22-30); Chloride 98.5 mmol/L (98-107); Glucose 146 mg/dL (75-100); Sodium 139 mmol/L (137-145)
[2016-11-28 05:52] LABS: Anion Gap 18 mmol/L; White Blood Count 22.4 K/mm3 (4.5-11.0)
[2016-11-28 05:53] LABS: Potassium 6.2 mmol/L (3.6-5.0)
[2016-11-28] MEDS ORDERED: KAYEXALATE PO ONE (06:00)
[2016-11-28] MEDS: LASIX PO SCH ×2 (06:46→18:10)
[2016-11-28] MEDS: DILAUDID IV PRN ×2 (07:09→11:49)
[2016-11-28 07:31] LABS: Anisocytosis 1+; Basophils % (Manual) 0 % (0.0-1.8); Blastocytes % (Manual) 0 %; Eosinophils % (Manual) 0 % (0.0-4.3)
[2016-11-28 07:32] LABS: Diff Status Complete; Hypochromasia Few; Polychromasia Few
[2016-11-28] MEDS: VANCOMYCIN VIAL 1,250 MG in NACL 0.9% 250ML 250 ML IV SCH ×2 (07:54→18:00)
[2016-11-28] MEDS ORDERED: ATIVAN IV NR (08:45)
--- NOTE | 2016-11-28 09:35 | Ultrasound Report ---
ULTRASOUND CHEST INDICATION: Right lung effusion. COMPARISON: Recent CT. FINDINGS: Sonographic pleural fluid estimation of approximately 86 mL on the right, felt inadequate for safe drainage. No significant left pleural effusion. CONCLUSION: Small right pleural effusion, as described. Thoracentesis hence not performed. Thank you for the opportunity to participate in this patient's care.
[2016-11-28] MEDS: LOPRESSOR PO SCH (09:50)
[2016-11-28] MEDS: IMDUR PO SCH (09:50)
[2016-11-28] MEDS: ASPIRIN PO SCH (09:50)
[2016-11-28] MEDS: ROXICODONE PO PRN (09:51)
[2016-11-28] MEDS: NORVASC PO SCH (09:51)
--- NOTE | 2016-11-28 11:05 | Progress Note ---
Assessment and Plan Current antibiotics: Ceftriaxone 2 grams IV q24h 11/26 --> Vancomcyin 1250mg IV q12h 11/26 --> ASSESSMENT: Audrey Ceron is a 56 year old man with end stage heart failure (EF 10-15%), COPD and alcohol abuse who was admitted to [facility] on 11/25/16 after leaving hospice care on 11/23/16. He said they informed him that he did not have much longer to live, he then decided to elope from hospice. He is now complaining of severe mid back pain with associated fevers. CT scan revealed diskitis at T8-T9 with paraspinal abnormal soft tissue. Problem list: 1. T8-T9 diskitis with paraspinal inflammation -Patient does have back pain with fevers. Ideally the best approach here would be to obtain aspiration at that spinal level or paraspinal area for culture to guide treatment. Without culture the only choice would be to treat empirically for the most common causes of diskitis/osteomyelitis. Would obtain neurosurgery input. -patient with continued back pain, would like the MRI to evaluate the T8-T9 diskitis, if fluid is present would ask IR to do an aspiration 2. Leukocytosis -Secondary to # 1 3. End stage heart failure -EF 10-15% PLAN: 1. Consider neurosurgery evaluation 2. May need to sedate (if safe) for MRI of thoracic spine to further detail the paraspinal findings, if there is fluid, could aspirate for culture 3. Follow up blood cultures (NGTD) 4. Continue vancomycin and ceftriaxone for now Mati Munoz MD [facility] Office: [phone] Subjective Date of service: 11/28/16 Principal diagnosis: T8-T9 diskitis Interval history: No change in back pain. Could not lie flat for MRI. Occasional chills but no subjective fevers. No new complaints. Objective - Exam Narrative Exam: GENERAL: Well-developed, well-nourished appearing male who is alert and in no acute distress. More anxious. HEAD: Normocephalic. No lesions seen. EYES: Pupils are equal reactive to light and accommodation. There is no scleral icterus. Optic fundi are not examined. EARS: Tympanic membranes are normal. THROAT: Oropharynx is normal with no evidence of oral candidiasis or pharyngitis. Poor dentition with multiple missing teeth NECK: Supple. No enlargement of the thyroid gland. No significant cervical lymphadenopathy. No jugular venous distention at 30. LUNGS: Clear with no adventitious sounds. HEART: Regular rate. S1 and S2 are normal. There are no murmurs, gallops, clicks or rubs heard. ABDOMEN: Soft and nontender. Liver and spleen are not palpably enlarged or tender. No palpable masses. Bowel sounds are normoactive. EXTREMITIES: No rash, peripheral lymphadenopathy, clubbing or edema. Some tenderness to palpation over lower back with no other objective findings. : Not examined NEUROLOGIC: No focal findings. - Constitutional Vitals: Vital Signs Temp Pulse Resp BP Pulse Ox 97.8 F 62 18 153/80 96 11/28/16 07:09 11/28/16 07:30 11/28/16 07:30 11/28/16 07:09 11/28/16 07:19 Temperature -Last 24 Hours Temperature 97.8 F Temperature 97.7 F Temperature 98.3 F - Labs CBC & Chem 7: 11/28/16 04:50 11/28/16 04:50 Labs: Abnormal lab results Microbiology 11/27/16 Unknown Urine,Clean Catch Urine Culture - Preliminary 11/26/16 01:41 Peripheral/Venous Blood Culture - Preliminary NO GROWTH AFTER 48 HOURS 11/26/16 01:41 Peripheral/Venous Blood Culture - Preliminary NO GROWTH AFTER 48 HOURS 11/26/16 02:20 Nasopharyngeal Swab Influenza Types A,B Antigen (CHRISTA) - Negative Imagin/18: CT abdomen/pelvis: Bony destructive lesion at T8-T9 with paraspinal swelling consistent with discitis/osteomyelitis. Otherwise unremarkable.
[2016-11-28] MEDS: ROCEPHIN/NS 2 GM/100 ML 100 ML IV SCH (11:52)
--- NOTE | 2016-11-28 12:02 | Progress Note ---
Assessment and Plan Assessment and plan: 56M who eloped from hospice 2 days prior to presentation when he realized that he may not live much longer. He presented with SOB, wheezing, DAI, cough and Mid back pain 1. T8/T9 diskitis? Versus osteomyelitis already on steroids and pain meds, Patient was able to lay still to perform MRI yesterday due to pain, will likely need sedation to get this MRI, however we do not have orthospine or neurosurgery available at this hospital, call has been made to [facility] for transfer of the patient for further workup and treatments -continue vanc and rocephin for now 2. Sepsis due to PNA- Right sided infiltrate w Rpleural effusion -continue abx, Ultrasound done today, scant remaining right pleural effusion, not enough to perform thoracentesis 3. CHF EF 15% continue lasix IV, optimize meds 4. COPD exacerbation steroids, nebs and abx , improving 5. HTN continue home meds 6. UTI continue abx, fup urine cultures 7. Hyperkalemia Potassium supplements was DC on 11/27, will DC lisinopril today, patient has received Kayexalate, follow-up potassium level and give more Kayexalate as needed. Of note abdominal ultrasound did not reveal any urinary obstruction History Interval history: Due to his mid back pain patient is able to lay still for MRI of his spine. He continues to have mid back pain, shortness of breath is now mostly resolved. Hospitalist Physical - Physical exam Narrative exam: General: appears chronically ill HEENT: MMM, EOMI cardiac: S1-S2 heard lungs: Right base dullness, occasional crackles and expiratory wheezing abdomen: soft, nontender, nondistended bowel sounds positive mid back tenderness along the spine extremities: no edema clubbing or cyanosis Skin: no rash or lesion Neuro: no focal deficit Psych: appropriate behavior and mood, cognition intact - Constitutional Vitals: Temp Pulse Resp BP Pulse Ox 97.8 F 62 18 153/80 96 11/28/16 07:09 11/28/16 07:30 11/28/16 07:30 11/28/16 07:09 11/28/16 07:19 General appearance: Present: no acute distress, well-nourished, obese Results - Labs CBC & Chem 7: 11/29/16 04:27 11/29/16 04:27 Labs: Laboratory Last Values WBC 22.4 K/mm3 (4.5-11.0) H 11/28/16 04:50 RBC 3.74 M/mm3 (3.65-5.03) 11/28/16 04:50 Hgb 10.0 gm/dl (11.8-15.2) L 11/28/16 04:50 Hct 32.2 % (35.5-45.6) L 11/28/16 04:50 MCV 86 fl (84-94) 11/28/16 04:50 MCH 27 pg (28-32) L 11/28/16 04:50 MCHC 31 % (32-34) L 11/28/16 04:50 RDW 20.0 % (13.2-15.2) H 11/28/16 04:50 Plt Count 276 K/mm3 (140-440) 11/28/16 04:50 Lymph % (Auto) 7.0 % (13.4-35.0) L 11/27/16 04:26 [place] % (Auto) 3.5 % (0.0-7.3) 11/27/16 04:26 Eos % (Auto) 0.0 % (0.0-4.3) 11/27/16 04:26 Baso % (Auto) 0.1 % (0.0-1.8) 11/27/16 04:26 Lymph # 1.2 K/mm3 (1.2-5.4) 11/27/16 04:26 Terry # 0.6 K/mm3 (0.0-0.8) 11/27/16 04:26 Eos # 0.0 K/mm3 (0.0-0.4) 11/27/16 04:26 Baso # 0.0 K/mm3 (0.0-0.1) 11/27/16 04:26 Add Manual Diff Complete 11/28/16 04:50 Total Counted 100 11/28/16 04:50 Seg Neutrophils % Stewarding Supervisor 11/28/16 04:50 Seg Neuts % (Manual) 82.0 % (40.0-70.0) H 11/28/16 04:50 Band Neutrophils % 8.0 % 11/28/16 04:50 Lymphocytes % (Manual) 8.0 % (13.4-35.0) L 11/28/16 04:50 Reactive Lymphs % (Man) 0 % 11/28/16 04:50 Monocytes % (Manual) 2.0 % (0.0-7.3) 11/28/16 04:50 Eosinophils % (Manual) 0 % (0.0-4.3) 11/28/16 04:50 Basophils % (Manual) 0 % (0.0-1.8) 11/28/16 04:50 Metamyelocytes % 0 % 11/28/16 04:50 Myelocytes % 0 % 11/28/16 04:50 Promyelocytes % 0 % 11/28/16 04:50 Blast Cells % 0 % 11/28/16 04:50 Nucleated RBC % Not Reportable 11/28/16 04:50 Seg Neutrophils # 15.0 K/mm3 (1.8-7.7) H 11/27/16 04:26 Seg Neutrophils # Man 18.4 K/mm3 (1.8-7.7) H 11/28/16 04:50 Band Neutrophils # 1.8 K/mm3 11/28/16 04:50 Lymphocytes # (Manual) 1.8 K/mm3 (1.2-5.4) 11/28/16 04:50 Abs React Lymphs (Man) 0.0 K/mm3 11/28/16 04:50 Monocytes # (Manual) 0.4 K/mm3 (0.0-0.8) 11/28/16 04:50 Eosinophils # (Manual) 0.0 K/mm3 (0.0-0.4) 11/28/16 04:50 Basophils # (Manual) 0.0 K/mm3 (0.0-0.1) 11/28/16 04:50 Metamyelocytes # 0.0 K/mm3 11/28/16 04:50 Myelocytes # 0.0 K/mm3 11/28/16 04:50 Promyelocytes # 0.0 K/mm3 11/28/16 04:50 Blast Cells # 0.0 K/mm3 11/28/16 04:50 WBC Morphology Not Reportable 11/28/16 04:50 Hypersegmented Neuts Not Reportable 11/28/16 04:50 Hyposegmented Neuts Not Reportable 11/28/16 04:50 Hypogranular Neuts Not Reportable 11/28/16 04:50 Smudge Cells Not Reportable 11/28/16 04:50 Toxic Granulation Not Reportable 11/28/16 04:50 Toxic Vacuolation Not Reportable 11/28/16 04:50 Dohle Bodies Not Reportable 11/28/16 04:50 Pelger-Huet Anomaly Not Reportable 11/28/16 04:50 Brittani Rods Not Reportable 11/28/16 04:50 Platelet Estimate Appears normal 11/28/16 04:50 Clumped Platelets Not Reportable 11/28/16 04:50 Plt Clumps, EDTA Not Reportable 11/28/16 04:50 Large Platelets Not Reportable 11/28/16 04:50 Giant Platelets Not Reportable 11/28/16 04:50 Platelet Satelliting Not Reportable 11/28/16 04:50 Plt Morphology Comment Not Reportable 11/28/16 04:50 RBC Morphology Not Reportable 11/28/16 04:50 Dimorphic RBCs Not Reportable 11/28/16 04:50 Polychromasia Few 11/28/16 04:50 Hypochromasia Few 11/28/16 04:50 Poikilocytosis Not Reportable 11/28/16 04:50 Anisocytosis 1+ 11/28/16 04:50 Microcytosis Not Reportable 11/28/16 04:50 Macrocytosis Not Reportable 11/28/16 04:50 Spherocytes Not Reportable 11/28/16 04:50 Pappenheimer Bodies Not Reportable 11/28/16 04:50 Sickle Cells Not Reportable 11/28/16 04:50 Target Cells Not Reportable 11/28/16 04:50 Tear Drop Cells Not Reportable 11/28/16 04:50 Ovalocytes Not Reportable 11/28/16 04:50 Helmet Cells Not Reportable 11/28/16 04:50 [place] Bodies Not Reportable 11/28/16 04:50 [employer] Rings Not Reportable 11/28/16 04:50 [place] Cells Not Reportable 11/28/16 04:50 Bite Cells Not Reportable 11/28/16 04:50 Crenated Cell Not Reportable 11/28/16 04:50 Elliptocytes Not Reportable 11/28/16 04:50 Acanthocytes (Spur) Not Reportable 11/28/16 04:50 Rouleaux Not Reportable 11/28/16 04:50 Hemoglobin C Crystals Not Reportable 11/28/16 04:50 Schistocytes Not Reportable 11/28/16 04:50 Malaria parasites Not Reportable 11/28/16 04:50 Willis Bodies Not Reportable 11/28/16 04:50 Hem Pathologist Commnt No 11/28/16 04:50 PT 13.3 Sec. (12.2-14.9) 11/26/16 01:07 INR 1.02 (0.87-1.13) 11/26/16 01:07 APTT 29.7 Sec. (24.2-36.6) 11/26/16 01:07 Sodium 139 mmol/L (137-145) 11/28/16 04:50 Potassium 6.2 mmol/L (3.6-5.0) H* 11/28/16 04:50 Chloride 98.5 mmol/L (98-107) 11/28/16 04:50 Carbon Dioxide 29 mmol/L (22-30) 11/28/16 04:50 Anion Gap 18 mmol/L 11/28/16 04:50 BUN 36 mg/dL (9-20) H 11/28/16 04:50 Creatinine 0.9 mg/dL (0.8-1.5) 11/28/16 04:50 Estimated GFR > 60 ml/min 11/28/16 04:50 BUN/Creatinine Ratio 40.00 % 11/28/16 04:50 Glucose 146 mg/dL (75-100) H 11/28/16 04:50 Lactic Acid 2.2 mmol/L (0.7-2.0) H* 11/26/16 01:07 Calcium 8.3 mg/dL (8.4-10.2) L 11/28/16 04:50 Total Bilirubin 0.2 mg/dL (0.1-1.2) 11/27/16 04:26 AST 16 units/L (5-40) 11/27/16 04:26 ALT 11 units/L (7-56) 11/27/16 04:26 Alkaline Phosphatase 118 units/L (35-129) 11/27/16 04:26 Total Creatine Kinase 47 units/L (55-170) L 11/26/16 01:07 Troponin T 0.048 ng/mL (0.00-0.029) H 11/26/16 00:58 C-Reactive Protein 2.90 mg/dL (0.00-1.30) H 11/26/16 13:30 NT-Pro-B Natriuret Pep 1090 pg/mL (0-900) H 11/26/16 01:07 Total Protein 6.4 g/dL (6.3-8.2) 11/27/16 04:26 Albumin 2.9 g/dL (3.9-5) L 11/27/16 04:26 Albumin/Globulin Ratio 0.8 % 11/27/16 04:26 Triglycerides 155 mg/dL (2-149) H 11/26/16 00:58 Cholesterol 150 mg/dL (50-199) 11/26/16 00:58 LDL Cholesterol Direct 81 mg/dL (50-130) 11/26/16 00:58 HDL Cholesterol 38 mg/dL (40-59) L 11/26/16 00:58 Cholesterol/HDL Ratio 3.94 % 11/26/16 00:58 Urine Color Red (Yellow) 11/26/16 02:47 Urine Turbidity Slightly-cloudy (Clear) 11/26/16 02:47 Urine pH 7.0 (5.0-7.0) 11/26/16 02:47 Ur Specific [place] 1.025 (1.003-1.030) 11/26/16 02:47 Urine Protein 100 mg/dl mg/dL (Negative) 11/26/16 02:47 Urine Glucose (UA) Neg mg/dL (Negative) 11/26/16 02:47 Urine Ketones Neg mg/dL (Negative) 11/26/16 02:47 Urine Blood Lg (Negative) 11/26/16 02:47 Urine Nitrite Pos (Negative) 11/26/16 02:47 Urine Bilirubin Neg (Negative) 11/26/16 02:47 Urine Urobilinogen 4.0 mg/dL (<2.0) 11/26/16 02:47 Ur Leukocyte Esterase Sm (Negative) 11/26/16 02:47 Urine WBC (Auto) 99.0 /HPF (0.0-6.0) H 11/26/16 02:47 Urine RBC (Auto) > 182.0 /HPF (0.0-6.0) 11/26/16 02:47 U Epithel Cells (Auto) 1.0 /HPF (0-13.0) 11/26/16 02:47 Urine Bacteria (Auto) 1+ /HPF (Negative) 11/26/16 02:47 Urine Mucus Few /HPF 11/26/16 02:47
--- NOTE | 2016-11-28 15:19 | Magnetic Resonance Report ---
MR THORACIC SPINE WITH AND WITHOUT CONTRAST History: Discitis, back pain. Findings: The MR images demonstrate abnormal T1 signal, abnormal T2 signal and enhancement following IV gadolinium involving vertebral bodies T8 and T9. Abnormal signal is also noted in the T8-9 disc. These findings are consistent with discitis/osteomyelitis. No epidural or paraspinal abscess is identified. There does appear to be mild inflammatory reaction in the paraspinal soft tissues. Small right pleural effusion is noted. The remaining thoracic vertebra demonstrate normal bone marrow signal. There is no evidence for fracture, malalignment, significant bulging disc or herniation. No high-grade central canal stenosis. The thoracic spinal cord is normal size and signal. Impression: Discitis/osteomyelitis at T8-9 as described. No peripherally enhancing epidural or paraspinal abscess is detected.
[2016-11-29] MEDS: LOVENOX SUB-Q SCH ×2 (00:18→23:18)
[2016-11-29] MEDS: LOPRESSOR PO SCH ×2 (00:20→09:38)
[2016-11-29] MEDS: DUONEB 0.5 MG-3 MG/3 ML SOLN IH SCH ×4 (01:10→19:54)
[2016-11-29 04:51] LABS: Hematocrit 33.6 % (35.5-45.6); Hemoglobin 10.8 gm/dl (11.8-15.2); Mean Corpuscular HGB Conc 32 % (32-34); Mean Corpuscular Hemoglobin 27 pg (28-32); Mean Corpuscular Volume 84 fl (84-94); Platelet Count 288 K/mm3 (140-440); Red Blood Count 3.99 M/mm3 (3.65-5.03); White Blood Count 15.9 K/mm3 (4.5-11.0)
[2016-11-29 05:12] LABS: BUN/Creatinine Ratio 46.25; Blood Urea Nitrogen 37 mg/dL (9-20); Calcium 8.1 mg/dL (8.4-10.2); Carbon Dioxide 29 mmol/L (22-30); Glucose 134 mg/dL (75-100); Potassium 4.7 mmol/L (3.6-5.0); Sodium 136 mmol/L (137-145)
[2016-11-29 05:13] LABS: Anion Gap 15 mmol/L
[2016-11-29] MEDS: LASIX PO SCH ×3 (06:43→17:33)
[2016-11-29] MEDS: VANCOMYCIN VIAL 1,250 MG in NACL 0.9% 250ML 250 ML IV SCH ×2 (06:43→17:29)
[2016-11-29 06:53] LABS: Basophils % (Manual) 0 % (0.0-1.8); Blastocytes % (Manual) 0 %; Eosinophils % (Manual) 0 % (0.0-4.3)
[2016-11-29 06:54] LABS: Anisocytosis 1+; Diff Status Complete; Hypochromasia 1+; Ovalocytes Few
[2016-11-29] MEDS: DILAUDID IV PRN ×3 (07:34→19:41)
[2016-11-29] MEDS: ASPIRIN PO SCH (09:37)
[2016-11-29] MEDS: ROXICODONE PO PRN ×3 (09:37→23:19)
[2016-11-29] MEDS: IMDUR PO SCH (09:37)
[2016-11-29] MEDS: NORVASC PO SCH (09:38)
[2016-11-29] MEDS: ROCEPHIN/NS 2 GM/100 ML 100 ML IV SCH (10:13)
--- NOTE | 2016-11-29 12:36 | Progress Note ---
Assessment and Plan Current antibiotics: Ceftriaxone 2 grams IV q24h 11/26 --> Vancomcyin 1250mg IV q12h 11/26 --> ASSESSMENT: Audrey Ceron is a 56 year old man with end stage heart failure (EF 10-15%), COPD and alcohol abuse who was admitted to [facility] on 11/25/16 after leaving hospice care on 11/23/16. He said they informed him that he did not have much longer to live, he then decided to elope from hospice. He is now complaining of severe mid back pain with associated fevers. CT scan revealed diskitis at T8-T9 with paraspinal abnormal soft tissue. Problem list: 1. T8-T9 diskitis with paraspinal inflammation -Patient does have back pain with fevers. Ideally the best approach here would be to obtain aspiration at that spinal level or paraspinal area for culture to guide treatment. Without culture the only choice would be to treat empirically for the most common causes of diskitis/osteomyelitis. Would obtain neurosurgery input. -patient with continued back pain, would like the MRI to evaluate the T8-T9 diskitis, if fluid is present would ask IR to do an aspiration - Blood cultures 11/25negative 2. Leukocytosis -Secondary to # 1 3. End stage heart failure -EF 10-15% PLAN: 1. Await anesthesia assistance to allow for diagnostic T-spine MRI. 2. Continue vancomycin and ceftriaxone for now Subjective Date of service: 11/29/16 Principal diagnosis: T8-T9 diskitis Interval history: Patient complains of back pain. Await plans to allow MRI scan. Objective - Exam Narrative Exam: Well-developed well-nourished appearing. No acute distress. HEENT: Pupils are equal reactive to light and accommodation. Conjunctiva clear. Oropharynx is normal with no evidence of oral candidiasis or pharyngitis. NECK: Supple. No enlargement of the thyroid gland. No significant cervical lymphadenopathy. No jugular venous distention at 30. LUNGS: Clear with no adventitious sounds. HEART: Regular rate. S1 and S2 are normal. Grade 3/6 systolic ejection murmur along the left sternal border. No diastolic murmur. ABDOMEN: Soft and nontender. Liver and spleen are not palpably enlarged or tender. No palpable masses. Bowel sounds are normoactive. EXTREMITIES: No rash, peripheral lymphadenopathy, clubbing or edema. BACK: Point tenderness over lower thoracic spine. No focal swelling or redness. SKIN: No other rash, ulcers or wounds. NEUROLOGIC: No focal findings. - Constitutional Vitals: Vital Signs Temp Pulse Resp BP Pulse Ox 97.6 F 51 L 18 155/77 98 11/29/16 11:55 11/29/16 11:55 11/29/16 11:55 11/29/16 11:55 11/29/16 11:55 Temperature -Last 24 Hours Temperature 97.6 F Temperature 98.1 F Temperature 98.1 F - Labs CBC & Chem 7: 11/29/16 04:27 11/29/16 04:27 Labs: Abnormal lab results 11/29/16 11/29/16 11/29/16 Range/Units 04:27 04:27 04:27 WBC 15.9 H (4.5-11.0) K/mm3 Hgb 10.8 L (11.8-15.2) gm/dl Hct 33.6 L (35.5-45.6) % MCH 27 L (28-32) pg RDW 20.0 H (13.2-15.2) % Seg Neuts % (Manual) 84.0 H (40.0-70.0) % Lymphocytes % (Manual) 6.0 L (13.4-35.0) % Seg Neutrophils # Man 13.4 H (1.8-7.7) K/mm3 Lymphocytes # (Manual) 1.0 L (1.2-5.4) K/mm3 Sodium 136 L (137-145) mmol/L Chloride 97.0 L (98-107) mmol/L BUN 37 H (9-20) mg/dL Glucose 134 H (75-100) mg/dL Calcium 8.1 L (8.4-10.2) mg/dL Vancomycin Trough 20.3 H (5.0-20.0) ug/mL
--- NOTE | 2016-11-29 13:45 | Progress Note ---
Assessment and Plan Assessment and plan: 6-year-old male with history of EtOH abuse recent discharged from hospice visits with discitis Disposition Plan: plan will be to try to attempt to obtain the data from paraspinous area. Total Time Spent with Patient (Minutes): 26 - Patient Problems (1) Diskitis Current Visit: Yes Status: Acute Plan to address problem: Discitis patient continues to have back pain was stable with current pain management. Plan was set in place to transfer to [place] [facility] for neurosurgery versus orthospine evaluation. Patient was to get aspirate of spinal fluid or paraspinous area at that time. Patient is now refused transfer to [facility] refused movement. Subsequently infectious disease has developed a contingency plan to try and treat empirically. Patient currently pain is improved normalized white count. Fever curve is coming down. Medications probably effective. MRI of the area is pending. (2) Accelerated hypertension Current Visit: No Status: Acute Plan to address problem: Patient blood pressure is much better control. However remains suboptimal on metoprolol and amlodipine. Would titrate up on metoprolol. (3) Acute bronchitis with COPD Current Visit: No Status: Resolved (4) Acute kidney injury Current Visit: No Status: Acute Plan to address problem: resolved patient did have episode of hyperkalemia and lisinopril was DC. (5) CHF (congestive heart failure) Current Visit: No Status: Acute Qualifiers: Congestive heart failure type: combined Congestive heart failure chronicity : chronic Qualified Code(s): I50.42 - Chronic combined systolic (congestive) and diastolic (congestive) heart failure Plan to address problem: Combined systolic and diastolic heart failure. Patient fairly well compensated this particular time ejection fraction 15%. History Interval history: Today patient complains of continued back pain. Awaiting pain medication at present. All questions answered to patient's satisfaction. Attempts to understand about discitis. Once in know where he got up from which could notquestion. Hospital course complicated by hypokalemia. And uncontrolled blood pressure. Otherwise no new concerns. Hospitalist Physical - Constitutional Vitals: Temp Pulse Resp BP Pulse Ox 97.6 F 51 L 18 155/77 98 11/29/16 11:55 11/29/16 11:55 11/29/16 11:55 11/29/16 11:55 11/29/16 11:55 General appearance: Present: mild distress, well-nourished, obese - EENT Eyes: Present: PERRL, EOM intact ENT: hearing intact, clear oral mucosa, dentition normal - Neck Neck: Present: supple, normal ROM. Absent: rigidity, enlarged thyroid, masses or JVD, carotid bruits - Respiratory Respiratory: bilateral: diminished - Cardiovascular Rhythm: regular - Extremities Extremities: no ischemia, pulses intact Extremity abnormal: edema, other (lies weakness) Peripheral Pulses: within normal limits - Abdominal General gastrointestinal: soft, non-tender, distended - Psychiatric Psychiatric: appropriate mood/affect, intact judgment & insight, cooperative, agitated - Neurologic Neurologic: CNII-XII intact, moves all extremities Results - Labs CBC & Chem 7: 11/29/16 04:27 11/29/16 04:27 Labs: Laboratory Last Values WBC 15.9 K/mm3 (4.5-11.0) H 11/29/16 04:27 RBC 3.99 M/mm3 (3.65-5.03) 11/29/16 04:27 Hgb 10.8 gm/dl (11.8-15.2) L 11/29/16 04:27 Hct 33.6 % (35.5-45.6) L 11/29/16 04:27 MCV 84 fl (84-94) 11/29/16 04:27 MCH 27 pg (28-32) L 11/29/16 04:27 MCHC 32 % (32-34) 11/29/16 04:27 RDW 20.0 % (13.2-15.2) H 11/29/16 04:27 Plt Count 288 K/mm3 (140-440) 11/29/16 04:27 Lymph % (Auto) 7.0 % (13.4-35.0) L 11/27/16 04:26 [place] % (Auto) 3.5 % (0.0-7.3) 11/27/16 04:26 Eos % (Auto) 0.0 % (0.0-4.3) 11/27/16 04:26 Baso % (Auto) 0.1 % (0.0-1.8) 11/27/16 04:26 Lymph # 1.2 K/mm3 (1.2-5.4) 11/27/16 04:26 [place] # 0.6 K/mm3 (0.0-0.8) 11/27/16 04:26 Eos # 0.0 K/mm3 (0.0-0.4) 11/27/16 04:26 Baso # 0.0 K/mm3 (0.0-0.1) 11/27/16 04:26 Add Manual Diff Complete 11/29/16 04:27 Total Counted 100 11/29/16 04:27 Seg Neutrophils % Sound Installation Worker 11/29/16 04:27 Seg Neuts % (Manual) 84.0 % (40.0-70.0) H 11/29/16 04:27 Band Neutrophils % 9.0 % 11/29/16 04:27 Lymphocytes % (Manual) 6.0 % (13.4-35.0) L 11/29/16 04:27 Reactive Lymphs % (Man) 0 % 11/29/16 04:27 Monocytes % (Manual) 1.0 % (0.0-7.3) 11/29/16 04:27 Eosinophils % (Manual) 0 % (0.0-4.3) 11/29/16 04:27 Basophils % (Manual) 0 % (0.0-1.8) 11/29/16 04:27 Metamyelocytes % 0 % 11/29/16 04:27 Myelocytes % 0 % 11/29/16 04:27 Promyelocytes % 0 % 11/29/16 04:27 Blast Cells % 0 % 11/29/16 04:27 Nucleated RBC % Not Reportable 11/29/16 04:27 Seg Neutrophils # 15.0 K/mm3 (1.8-7.7) H 11/27/16 04:26 Seg Neutrophils # Man 13.4 K/mm3 (1.8-7.7) H 11/29/16 04:27 Band Neutrophils # 1.4 K/mm3 11/29/16 04:27 Lymphocytes # (Manual) 1.0 K/mm3 (1.2-5.4) L 11/29/16 04:27 Abs React Lymphs (Man) 0.0 K/mm3 11/29/16 04:27 Monocytes # (Manual) 0.2 K/mm3 (0.0-0.8) 11/29/16 04:27 Eosinophils # (Manual) 0.0 K/mm3 (0.0-0.4) 11/29/16 04:27 Basophils # (Manual) 0.0 K/mm3 (0.0-0.1) 11/29/16 04:27 Metamyelocytes # 0.0 K/mm3 11/29/16 04:27 Myelocytes # 0.0 K/mm3 11/29/16 04:27 Promyelocytes # 0.0 K/mm3 11/29/16 04:27 Blast Cells # 0.0 K/mm3 11/29/16 04:27 WBC Morphology Not Reportable 11/29/16 04:27 Hypersegmented Neuts Not Reportable 11/29/16 04:27 Hyposegmented Neuts Not Reportable 11/29/16 04:27 Hypogranular Neuts Not Reportable 11/29/16 04:27 Smudge Cells Not Reportable 11/29/16 04:27 Toxic Granulation Not Reportable 11/29/16 04:27 Toxic Vacuolation Not Reportable 11/29/16 04:27 Dohle Bodies Not Reportable 11/29/16 04:27 Pelger-Huet Anomaly Not Reportable 11/29/16 04:27 Brittani Rods Not Reportable 11/29/16 04:27 Platelet Estimate Appears normal 11/29/16 04:27 Clumped Platelets Not Reportable 11/29/16 04:27 Plt Clumps, EDTA Not Reportable 11/29/16 04:27 Large Platelets Not Reportable 11/29/16 04:27 Giant Platelets Not Reportable 11/29/16 04:27 Platelet Satelliting Not Reportable 11/29/16 04:27 Plt Morphology Comment Not Reportable 11/29/16 04:27 RBC Morphology Not Reportable 11/29/16 04:27 Dimorphic RBCs Not Reportable 11/29/16 04:27 Polychromasia Not Reportable 11/29/16 04:27 Hypochromasia 1+ 11/29/16 04:27 Poikilocytosis Not Reportable 11/29/16 04:27 Anisocytosis 1+ 11/29/16 04:27 Microcytosis Not Reportable 11/29/16 04:27 Macrocytosis Not Reportable 11/29/16 04:27 Spherocytes Not Reportable 11/29/16 04:27 Pappenheimer Bodies Not Reportable 11/29/16 04:27 Sickle Cells Not Reportable 11/29/16 04:27 Target Cells Not Reportable 11/29/16 04:27 Tear Drop Cells Not Reportable 11/29/16 04:27 Ovalocytes Few 11/29/16 04:27 Helmet Cells Not Reportable 11/29/16 04:27 [place] Bodies Not Reportable 11/29/16 04:27 [place] Rings Not Reportable 11/29/16 04:27 [place] Cells Not Reportable 11/29/16 04:27 Bite Cells Not Reportable 11/29/16 04:27 Crenated Cell Not Reportable 11/29/16 04:27 Elliptocytes Not Reportable 11/29/16 04:27 Acanthocytes (Spur) Not Reportable 11/29/16 04:27 Rouleaux Not Reportable 11/29/16 04:27 Hemoglobin C Crystals Not Reportable 11/29/16 04:27 Schistocytes Not Reportable 11/29/16 04:27 Malaria parasites Not Reportable 11/29/16 04:27 Willis Bodies Not Reportable 11/29/16 04:27 Hem Pathologist Commnt No 11/29/16 04:27 PT 13.3 Sec. (12.2-14.9) 11/26/16 01:07 INR 1.02 (0.87-1.13) 11/26/16 01:07 APTT 29.7 Sec. (24.2-36.6) 11/26/16 01:07 Sodium 136 mmol/L (137-145) L 11/29/16 04:27 Potassium 4.7 mmol/L (3.6-5.0) 11/29/16 04:27 Chloride 97.0 mmol/L (98-107) L 11/29/16 04:27 Carbon Dioxide 29 mmol/L (22-30) 11/29/16 04:27 Anion Gap 15 mmol/L 11/29/16 04:27 BUN 37 mg/dL (9-20) H 11/29/16 04:27 Creatinine 0.8 mg/dL (0.8-1.5) 11/29/16 04:27 Estimated GFR > 60 ml/min 11/29/16 04:27 BUN/Creatinine Ratio 46.25 % 11/29/16 04:27 Glucose 134 mg/dL (75-100) H 11/29/16 04:27 Lactic Acid 2.2 mmol/L (0.7-2.0) H* 11/26/16 01:07 Calcium 8.1 mg/dL (8.4-10.2) L 11/29/16 04:27 Total Bilirubin 0.2 mg/dL (0.1-1.2) 11/27/16 04:26 AST 16 units/L (5-40) 11/27/16 04:26 ALT 11 units/L (7-56) 11/27/16 04:26 Alkaline Phosphatase 118 units/L (35-129) 11/27/16 04:26 Total Creatine Kinase 47 units/L (55-170) L 11/26/16 01:07 Troponin T 0.048 ng/mL (0.00-0.029) H 11/26/16 00:58 C-Reactive Protein 2.90 mg/dL (0.00-1.30) H 11/26/16 13:30 NT-Pro-B Natriuret Pep 1090 pg/mL (0-900) H 11/26/16 01:07 Total Protein 6.4 g/dL (6.3-8.2) 11/27/16 04:26 Albumin 2.9 g/dL (3.9-5) L 11/27/16 04:26 Albumin/Globulin Ratio 0.8 % 11/27/16 04:26 Triglycerides 155 mg/dL (2-149) H 11/26/16 00:58 Cholesterol 150 mg/dL (50-199) 11/26/16 00:58 LDL Cholesterol Direct 81 mg/dL (50-130) 11/26/16 00:58 HDL Cholesterol 38 mg/dL (40-59) L 11/26/16 00:58 Cholesterol/HDL Ratio 3.94 % 11/26/16 00:58 Urine Color Red (Yellow) 11/26/16 02:47 Urine Turbidity Slightly-cloudy (Clear) 11/26/16 02:47 Urine pH 7.0 (5.0-7.0) 11/26/16 02:47 Ur Specific [place] 1.025 (1.003-1.030) 11/26/16 02:47 Urine Protein 100 mg/dl mg/dL (Negative) 11/26/16 02:47 Urine Glucose (UA) Neg mg/dL (Negative) 11/26/16 02:47 Urine Ketones Neg mg/dL (Negative) 11/26/16 02:47 Urine Blood Lg (Negative) 11/26/16 02:47 Urine Nitrite Pos (Negative) 11/26/16 02:47 Urine Bilirubin Neg (Negative) 11/26/16 02:47 Urine Urobilinogen 4.0 mg/dL (<2.0) 11/26/16 02:47 Ur Leukocyte Esterase Sm (Negative) 11/26/16 02:47 Urine WBC (Auto) 99.0 /HPF (0.0-6.0) H 11/26/16 02:47 Urine RBC (Auto) > 182.0 /HPF (0.0-6.0) 11/26/16 02:47 U Epithel Cells (Auto) 1.0 /HPF (0-13.0) 11/26/16 02:47 Urine Bacteria (Auto) 1+ /HPF (Negative) 11/26/16 02:47 Urine Mucus Few /HPF 11/26/16 02:47 Vancomycin Trough 20.3 ug/mL (5.0-20.0) H 11/29/16 04:27 - Imaging and Cardiology Chest x-ray: report reviewed CT scan - abdomen: report reviewed, image reviewed MRI - head: report reviewed
[2016-11-30] MEDS: LOPRESSOR PO SCH ×3 (01:27→23:48)
[2016-11-30] MEDS: DUONEB 0.5 MG-3 MG/3 ML SOLN IH SCH ×4 (01:38→21:55)
[2016-11-30] MEDS: DILAUDID IV PRN ×6 (01:59→23:44)
[2016-11-30] MEDS: VANCOMYCIN VIAL 1,250 MG in NACL 0.9% 250ML 250 ML IV SCH ×2 (06:00→17:47)
[2016-11-30 06:03] LABS: Hematocrit 34.1 % (35.5-45.6); Hemoglobin 10.8 gm/dl (11.8-15.2); Mean Corpuscular HGB Conc 32 % (32-34); Mean Corpuscular Hemoglobin 27 pg (28-32); Mean Corpuscular Volume 85 fl (84-94); Red Blood Count 4.01 M/mm3 (3.65-5.03); Red Cell Distribution Width 19.5 % (13.2-15.2); White Blood Count 12.6 K/mm3 (4.5-11.0)
[2016-11-30 06:04] LABS: Blood Urea Nitrogen 36 mg/dL (9-20); Calcium 8.1 mg/dL (8.4-10.2); Carbon Dioxide 29 mmol/L (22-30); Chloride 95.7 mmol/L (98-107); Glucose 164 mg/dL (75-100); Potassium 4.5 mmol/L (3.6-5.0); Sodium 137 mmol/L (137-145)
[2016-11-30 06:23] LABS: Anion Gap 17 mmol/L
[2016-11-30 06:26] LABS: Platelet Count 305 K/mm3 (140-440)
[2016-11-30] MEDS: LASIX PO SCH ×2 (06:42→17:12)
[2016-11-30 07:26] LABS: Anisocytosis 1+; Basophils % (Manual) 0 % (0.0-1.8); Blastocytes % (Manual) 0 %; Elliptocytes Few; Eosinophils % (Manual) 0 % (0.0-4.3); Hypochromasia 1+
[2016-11-30 07:27] LABS: Diff Status Complete; Ovalocytes Few
[2016-11-30] MEDS: ROXICODONE PO PRN ×2 (08:59→17:44)
[2016-11-30] MEDS: ROCEPHIN/NS 2 GM/100 ML 100 ML IV SCH (10:08)
[2016-11-30] MEDS: IMDUR PO SCH (10:25)
[2016-11-30] MEDS: ASPIRIN PO SCH (10:26)
[2016-11-30] MEDS: NORVASC PO SCH (10:27)
--- NOTE | 2016-11-30 11:24 | Progress Note ---
Assessment and Plan Current antibiotics: Ceftriaxone 2 grams IV q24h 11/26 --> Vancomcyin 1250mg IV q12h 11/26 --> ASSESSMENT: Audrey Ceron is a 56 year old man with end stage heart failure (EF 10-15%), COPD and alcohol abuse who was admitted to [facility] on 11/25/16 after leaving hospice care on 11/23/16. He said they informed him that he did not have much longer to live, he then decided to elope from hospice. He is now complaining of severe mid back pain with associated fevers. CT scan revealed diskitis at T8-T9 with paraspinal abnormal soft tissue. Problem list: 1. T8-T9 diskitis with paraspinal inflammation -Patient does have back pain with fevers. Ideally the best approach here would be to obtain aspiration at that spinal level or paraspinal area for culture to guide treatment. Without culture the only choice would be to treat empirically for the most common causes of diskitis/osteomyelitis. Would obtain neurosurgery input. -patient with continued back pain, would like the MRI to evaluate the T8-T9 diskitis, if fluid is present would ask IR to do an aspiration - Blood cultures 11/25negative 2. Leukocytosis -Secondary to # 1 3. End stage heart failure -EF 10-15% PLAN: 1. Await anesthesia assistance to allow for diagnostic T-spine MRI. 2. Continue vancomycin and ceftriaxone for now 3. Suggest, if possible, therapeutic back surgeon/neurosurgeon to document surgical opinion. 4. CRP ordered for the a.m. Subjective Date of service: 11/30/16 Principal diagnosis: T8-T9 diskitis Interval history: Remains with severe back pain. Patient sees no improvement. Objective - Exam Narrative Exam: Well-developed well-nourished appearing. No acute distress. HEENT: Pupils are equal reactive to light and accommodation. Conjunctiva clear. Oropharynx is normal with no evidence of oral candidiasis or pharyngitis. NECK: Supple. No enlargement of the thyroid gland. No significant cervical lymphadenopathy. No jugular venous distention at 30. LUNGS: Clear with no adventitious sounds. HEART: Regular rate. S1 and S2 are normal. Grade 3/6 systolic ejection murmur along the left sternal border. No diastolic murmur. ABDOMEN: Soft and nontender. Liver and spleen are not palpably enlarged or tender. No palpable masses. Bowel sounds are normoactive. EXTREMITIES: No rash, peripheral lymphadenopathy, clubbing or edema. BACK: Point tenderness over lower thoracic spine. No focal swelling or redness. SKIN: No other rash, ulcers or wounds. NEUROLOGIC: No focal findings. - Constitutional Vitals: Vital Signs Temp Pulse Resp BP Pulse Ox 98.3 F 52 L 20 168/83 93 11/30/16 07:56 11/30/16 10:27 11/30/16 07:56 11/30/16 10:27 11/30/16 07:56 Temperature -Last 24 Hours Temperature 98.3 F Temperature 97.5 F Temperature 97.6 F - Labs CBC & Chem 7: 11/30/16 04:30 11/30/16 04:30 Labs: Abnormal lab results 11/30/16 11/30/16 Range/Units 04:30 04:30 WBC 12.6 H (4.5-11.0) K/mm3 Hgb 10.8 L (11.8-15.2) gm/dl Hct 34.1 L (35.5-45.6) % MCH 27 L (28-32) pg RDW 19.5 H (13.2-15.2) % Seg Neuts % (Manual) 83.0 H (40.0-70.0) % Lymphocytes % (Manual) 7.0 L (13.4-35.0) % Seg Neutrophils # Man 10.5 H (1.8-7.7) K/mm3 Lymphocytes # (Manual) 0.9 L (1.2-5.4) K/mm3 Chloride 95.7 L (98-107) mmol/L BUN 36 H (9-20) mg/dL Glucose 164 H (75-100) mg/dL Calcium 8.1 L (8.4-10.2) mg/dL
--- NOTE | 2016-11-30 11:43 | Progress Note ---
Assessment and Plan Assessment and plan: Patient is a 56-year-old man with a history of cardiomyopathy, CHF EF 10-15 percent, COPD and alcohol abuse who presented with LBP, Ct scan revealed t8-t9 discitis. 1. Drastic discitis: Continue IV antibiotics and IV narcotics 2. Accelerated hypertension 3. Acute on chronic combined heart failure 4. End-stage cardiomyopathy Bone biopsy for tissue sample to direct IV antibiotics History Interval history: Patient seen and examined. Follow up on low back pain which is still present. Overnight uneventful. No cp, sob, n/v or severe headaches. Imaging, old records , testing, labs, nursing notes reviewed. Hospitalist Physical - Physical exam Narrative exam: GEN: WDWN, NAD, AWAKE, ALERT, ORIENTATED 3 CVS: RRR, NORMAL S1S2 LUNGS/CHEST: CTA B, NORMAL CHEST EXPANSION B, GOOD AIR ENTRY B ABD: SOFT NTND, GBS, NO REBOUND OR GUARDING MSK: FROM X 4 EXTREMITIES NEURO: CN 2-12 GROSSLY INTACT, NO NEW FOCAL DEFICITS PSY: Anxious - Constitutional Vitals: Temp Pulse Resp BP Pulse Ox 98.3 F 52 L 20 168/83 93 11/30/16 07:56 11/30/16 10:27 11/30/16 07:56 11/30/16 10:27 11/30/16 07:56 Results - Labs CBC & Chem 7: 11/30/16 04:30 11/30/16 04:30 Labs: Laboratory Last Values WBC 12.6 K/mm3 (4.5-11.0) H 11/30/16 04:30 RBC 4.01 M/mm3 (3.65-5.03) 11/30/16 04:30 Hgb 10.8 gm/dl (11.8-15.2) L 11/30/16 04:30 Hct 34.1 % (35.5-45.6) L 11/30/16 04:30 MCV 85 fl (84-94) 11/30/16 04:30 MCH 27 pg (28-32) L 11/30/16 04:30 MCHC 32 % (32-34) 11/30/16 04:30 RDW 19.5 % (13.2-15.2) H 11/30/16 04:30 Plt Count 305 K/mm3 (140-440) 11/30/16 04:30 Lymph % (Auto) 7.0 % (13.4-35.0) L 11/27/16 04:26 [place] % (Auto) 3.5 % (0.0-7.3) 11/27/16 04:26 Eos % (Auto) 0.0 % (0.0-4.3) 11/27/16 04:26 Baso % (Auto) 0.1 % (0.0-1.8) 11/27/16 04:26 Lymph # 1.2 K/mm3 (1.2-5.4) 11/27/16 04:26 [place] # 0.6 K/mm3 (0.0-0.8) 11/27/16 04:26 Eos # 0.0 K/mm3 (0.0-0.4) 11/27/16 04:26 Baso # 0.0 K/mm3 (0.0-0.1) 11/27/16 04:26 Add Manual Diff Complete 11/30/16 04:30 Total Counted 100 11/30/16 04:30 Seg Neutrophils % Numerical Control Drill Press Operator 11/29/16 04:27 Seg Neuts % (Manual) 83.0 % (40.0-70.0) H 11/30/16 04:30 Band Neutrophils % 9.0 % 11/30/16 04:30 Lymphocytes % (Manual) 7.0 % (13.4-35.0) L 11/30/16 04:30 Reactive Lymphs % (Man) 0 % 11/30/16 04:30 Monocytes % (Manual) 1.0 % (0.0-7.3) 11/30/16 04:30 Eosinophils % (Manual) 0 % (0.0-4.3) 11/30/16 04:30 Basophils % (Manual) 0 % (0.0-1.8) 11/30/16 04:30 Metamyelocytes % 0 % 11/30/16 04:30 Myelocytes % 0 % 11/30/16 04:30 Promyelocytes % 0 % 11/30/16 04:30 Blast Cells % 0 % 11/30/16 04:30 Nucleated RBC % Not Reportable 11/30/16 04:30 Seg Neutrophils # 15.0 K/mm3 (1.8-7.7) H 11/27/16 04:26 Seg Neutrophils # Man 10.5 K/mm3 (1.8-7.7) H 11/30/16 04:30 Band Neutrophils # 1.1 K/mm3 11/30/16 04:30 Lymphocytes # (Manual) 0.9 K/mm3 (1.2-5.4) L 11/30/16 04:30 Abs React Lymphs (Man) 0.0 K/mm3 11/30/16 04:30 Monocytes # (Manual) 0.1 K/mm3 (0.0-0.8) 11/30/16 04:30 Eosinophils # (Manual) 0.0 K/mm3 (0.0-0.4) 11/30/16 04:30 Basophils # (Manual) 0.0 K/mm3 (0.0-0.1) 11/30/16 04:30 Metamyelocytes # 0.0 K/mm3 11/30/16 04:30 Myelocytes # 0.0 K/mm3 11/30/16 04:30 Promyelocytes # 0.0 K/mm3 11/30/16 04:30 Blast Cells # 0.0 K/mm3 11/30/16 04:30 WBC Morphology Not Reportable 11/30/16 04:30 Hypersegmented Neuts Not Reportable 11/30/16 04:30 Hyposegmented Neuts Not Reportable 11/30/16 04:30 Hypogranular Neuts Not Reportable 11/30/16 04:30 Smudge Cells Not Reportable 11/30/16 04:30 Toxic Granulation Not Reportable 11/30/16 04:30 Toxic Vacuolation Not Reportable 11/30/16 04:30 Dohle Bodies Not Reportable 11/30/16 04:30 Pelger-Huet Anomaly Not Reportable 11/30/16 04:30 Brittani Rods Not Reportable 11/30/16 04:30 Platelet Estimate Appears normal 11/30/16 04:30 Clumped Platelets Not Reportable 11/30/16 04:30 Plt Clumps, EDTA Not Reportable 11/30/16 04:30 Large Platelets Not Reportable 11/30/16 04:30 Giant Platelets Not Reportable 11/30/16 04:30 Platelet Satelliting Not Reportable 11/30/16 04:30 Plt Morphology Comment Not Reportable 11/30/16 04:30 RBC Morphology Not Reportable 11/30/16 04:30 Dimorphic RBCs Not Reportable 11/30/16 04:30 Polychromasia Not Reportable 11/30/16 04:30 Hypochromasia 1+ 11/30/16 04:30 Poikilocytosis Not Reportable 11/30/16 04:30 Anisocytosis 1+ 11/30/16 04:30 Microcytosis Not Reportable 11/30/16 04:30 Macrocytosis Not Reportable 11/30/16 04:30 Spherocytes Not Reportable 11/30/16 04:30 Pappenheimer Bodies Not Reportable 11/30/16 04:30 Sickle Cells Not Reportable 11/30/16 04:30 Target Cells Not Reportable 11/30/16 04:30 Tear Drop Cells Not Reportable 11/30/16 04:30 Ovalocytes Few 11/30/16 04:30 Helmet Cells Not Reportable 11/30/16 04:30 [place] Bodies Not Reportable 11/30/16 04:30 [place] Rings Not Reportable 11/30/16 04:30 [place] Cells Not Reportable 11/30/16 04:30 Bite Cells Not Reportable 11/30/16 04:30 Crenated Cell Not Reportable 11/30/16 04:30 Elliptocytes Few 11/30/16 04:30 Acanthocytes (Spur) Not Reportable 11/30/16 04:30 Rouleaux Not Reportable 11/30/16 04:30 Hemoglobin C Crystals Not Reportable 11/30/16 04:30 Schistocytes Not Reportable 11/30/16 04:30 Malaria parasites Not Reportable 11/30/16 04:30 Willis Bodies Not Reportable 11/30/16 04:30 Hem Pathologist Commnt No 11/30/16 04:30 PT 13.3 Sec. (12.2-14.9) 11/26/16 01:07 INR 1.02 (0.87-1.13) 11/26/16 01:07 APTT 29.7 Sec. (24.2-36.6) 11/26/16 01:07 Sodium 137 mmol/L (137-145) 11/30/16 04:30 Potassium 4.5 mmol/L (3.6-5.0) 11/30/16 04:30 Chloride 95.7 mmol/L (98-107) L 11/30/16 04:30 Carbon Dioxide 29 mmol/L (22-30) 11/30/16 04:30 Anion Gap 17 mmol/L 11/30/16 04:30 BUN 36 mg/dL (9-20) H 11/30/16 04:30 Creatinine 0.8 mg/dL (0.8-1.5) 11/30/16 04:30 Estimated GFR > 60 ml/min 11/30/16 04:30 BUN/Creatinine Ratio 45.00 % 11/30/16 04:30 Glucose 164 mg/dL (75-100) H 11/30/16 04:30 Lactic Acid 2.2 mmol/L (0.7-2.0) H* 11/26/16 01:07 Calcium 8.1 mg/dL (8.4-10.2) L 11/30/16 04:30 Total Bilirubin 0.2 mg/dL (0.1-1.2) 11/27/16 04:26 AST 16 units/L (5-40) 11/27/16 04:26 ALT 11 units/L (7-56) 11/27/16 04:26 Alkaline Phosphatase 118 units/L (35-129) 11/27/16 04:26 Total Creatine Kinase 47 units/L (55-170) L 11/26/16 01:07 Troponin T 0.048 ng/mL (0.00-0.029) H 11/26/16 00:58 C-Reactive Protein 2.90 mg/dL (0.00-1.30) H 11/26/16 13:30 NT-Pro-B Natriuret Pep 1090 pg/mL (0-900) H 11/26/16 01:07 Total Protein 6.4 g/dL (6.3-8.2) 11/27/16 04:26 Albumin 2.9 g/dL (3.9-5) L 11/27/16 04:26 Albumin/Globulin Ratio 0.8 % 11/27/16 04:26 Triglycerides 155 mg/dL (2-149) H 11/26/16 00:58 Cholesterol 150 mg/dL (50-199) 11/26/16 00:58 LDL Cholesterol Direct 81 mg/dL (50-130) 11/26/16 00:58 HDL Cholesterol 38 mg/dL (40-59) L 11/26/16 00:58 Cholesterol/HDL Ratio 3.94 % 11/26/16 00:58 Urine Color Red (Yellow) 11/26/16 02:47 Urine Turbidity Slightly-cloudy (Clear) 11/26/16 02:47 Urine pH 7.0 (5.0-7.0) 11/26/16 02:47 Ur Specific [place] 1.025 (1.003-1.030) 11/26/16 02:47 Urine Protein 100 mg/dl mg/dL (Negative) 11/26/16 02:47 Urine Glucose (UA) Neg mg/dL (Negative) 11/26/16 02:47 Urine Ketones Neg mg/dL (Negative) 11/26/16 02:47 Urine Blood Lg (Negative) 11/26/16 02:47 Urine Nitrite Pos (Negative) 11/26/16 02:47 Urine Bilirubin Neg (Negative) 11/26/16 02:47 Urine Urobilinogen 4.0 mg/dL (<2.0) 11/26/16 02:47 Ur Leukocyte Esterase Sm (Negative) 11/26/16 02:47 Urine WBC (Auto) 99.0 /HPF (0.0-6.0) H 11/26/16 02:47 Urine RBC (Auto) > 182.0 /HPF (0.0-6.0) 11/26/16 02:47 U Epithel Cells (Auto) 1.0 /HPF (0-13.0) 11/26/16 02:47 Urine Bacteria (Auto) 1+ /HPF (Negative) 11/26/16 02:47 Urine Mucus Few /HPF 11/26/16 02:47 Vancomycin Trough 20.3 ug/mL (5.0-20.0) H 11/29/16 04:27 - Imaging and Cardiology CT scan - pelvis: other (ct spine)
[2016-12-01] MEDS: DUONEB 0.5 MG-3 MG/3 ML SOLN IH SCH ×4 (02:59→19:41)
[2016-12-01] MEDS: DILAUDID IV PRN ×4 (03:09→17:18)
[2016-12-01 05:38] LABS: Hematocrit 33.1 % (35.5-45.6); Hemoglobin 10.5 gm/dl (11.8-15.2); Mean Corpuscular HGB Conc 32 % (32-34); Mean Corpuscular Hemoglobin 27 pg (28-32); Mean Corpuscular Volume 84 fl (84-94); Platelet Count 302 K/mm3 (140-440); Red Blood Count 3.95 M/mm3 (3.65-5.03); Red Cell Distribution Width 19.8 % (13.2-15.2); White Blood Count 11.4 K/mm3 (4.5-11.0)
[2016-12-01 06:03] LABS: Blood Urea Nitrogen 36 mg/dL (9-20); Carbon Dioxide 28 mmol/L (22-30); Glucose 157 mg/dL (75-100); Potassium 4.6 mmol/L (3.6-5.0); Sodium 138 mmol/L (137-145)
[2016-12-01 06:05] LABS: Anion Gap 18 mmol/L
[2016-12-01] MEDS: VANCOMYCIN VIAL 1,250 MG in NACL 0.9% 250ML 250 ML IV SCH ×2 (07:45→18:21)
[2016-12-01] MEDS: LASIX PO SCH ×2 (07:49→18:20)
[2016-12-01] MEDS: ROXICODONE PO PRN ×3 (09:27→20:48)
[2016-12-01] MEDS: IMDUR PO SCH (09:28)
[2016-12-01] MEDS: ROCEPHIN/NS 2 GM/100 ML 100 ML IV SCH (09:28)
[2016-12-01] MEDS: ASPIRIN PO SCH (09:28)
[2016-12-01] MEDS: LOPRESSOR PO SCH ×2 (09:28→21:08)
[2016-12-01] MEDS: NORVASC PO SCH (09:28)
--- NOTE | 2016-12-01 10:32 | Progress Note ---
Assessment and Plan Current antibiotics: Ceftriaxone 2 grams IV q24h 11/26 --> Vancomcyin 1250mg IV q12h 11/26 --> ASSESSMENT: Audrey Ceron is a 56 year old man with end stage heart failure (EF 10-15%), COPD and alcohol abuse who was admitted to [facility] on 11/25/16 after leaving hospice care on 11/23/16. He said they informed him that he did not have much longer to live, he then decided to elope from hospice. He is now complaining of severe mid back pain with associated fevers. CT scan revealed diskitis at T8-T9 with paraspinal abnormal soft tissue. Problem list: 1. T8-T9 diskitis with paraspinal inflammation -Patient does have back pain with fevers. Ideally the best approach here would be to obtain aspiration at that spinal level or paraspinal area for culture to guide treatment. Without culture the only choice would be to treat empirically for the most common causes of diskitis/osteomyelitis. Would obtain neurosurgery input. -patient with continued back pain, would like the MRI to evaluate the T8-T9 diskitis, if fluid is present would ask IR to do an aspiration 2. Leukocytosis -Secondary to # 1 3. End stage heart failure -EF 10-15% PLAN: 1. Consider neurosurgery evaluation 2. MRI of thoracic spine with sedation to further detail the paraspinal findings, if there is fluid, could aspirate for culture 3. Follow up blood cultures (NGTD) 4. Continue vancomycin and ceftriaxone for now Mati Munoz MD [facility] Office: [phone] Subjective Date of service: 12/01/16 Principal diagnosis: T8-T9 diskitis Interval history: No change in back pain. Still "severe" and pain medicines "aren't helping." ROS: No subjective fever or chills. No nausea, vomiting or diarrhea. No shortness of breath, cough or pleuritic chest pain Objective - Exam Narrative Exam: GENERAL: Well-developed, well-nourished appearing male who is alert and in no acute distress. More anxious. HEAD: Normocephalic. No lesions seen. EYES: Pupils are equal reactive to light and accommodation. There is no scleral icterus. Optic fundi are not examined. EARS: Tympanic membranes are normal. THROAT: Oropharynx is normal with no evidence of oral candidiasis or pharyngitis. Poor dentition with multiple missing teeth NECK: Supple. No enlargement of the thyroid gland. No significant cervical lymphadenopathy. No jugular venous distention at 30. LUNGS: Clear with no adventitious sounds. HEART: Regular rate. S1 and S2 are normal. There are no murmurs, gallops, clicks or rubs heard. ABDOMEN: Soft and nontender. Liver and spleen are not palpably enlarged or tender. No palpable masses. Bowel sounds are normoactive. EXTREMITIES: No rash, peripheral lymphadenopathy, clubbing or edema. Some tenderness to palpation over lower back with no other objective findings. : Not examined NEUROLOGIC: No focal findings. - Constitutional Vitals: Vital Signs Temp Pulse Resp BP Pulse Ox 97.5 F L 72 20 181/100 98 12/01/16 08:02 12/01/16 09:28 12/01/16 08:02 12/01/16 09:28 12/01/16 08:02 Temperature -Last 24 Hours Temperature 97.5 F Temperature 97.9 F Temperature 98.3 F Temperature 97.9 F - Labs CBC & Chem 7: 12/01/16 04:58 12/01/16 04:58 Labs: Abnormal lab results Microbiology 11/26/16 01:41 Peripheral/Venous Blood Culture - Final NO GROWTH AFTER 5 DAYS 11/26/16 01:41 Peripheral/Venous Blood Culture - Final NO GROWTH AFTER 5 DAYS 11/27/16 Unknown Urine,Clean Catch Urine Culture - Final 11/26/16 02:20 Nasopharyngeal Swab Influenza Types A,B Antigen (CHRISTA) - negative
--- NOTE | 2016-12-01 11:29 | Progress Note ---
Assessment and Plan Assessment and plan: Patient is a 56-year-old man with a history of cardiomyopathy, CHF with EF 10-15 %, COPD and alcohol abuse who presented with LBP, Ct scan revealed t8-t9 discitis. 1. T8-T9 discitis: Continue IV antibiotics and IV narcotics, will not increase iv Dilaudid 2. Accelerated hypertension 3. Acute on chronic combined heart failure 4. End-stage cardiomyopathy Bone biopsy for tissue sample to direct IV antibiotics I called [place] transfer [facility] and spoke with Sherron. Since patient is unfunded, his case went to [employer] on Thursday and will be sent to Business Development Director today (Thursday) for decision on transfer. We do not have Nsy coverage or ortho-spine coverage. I gave her Dr. Royal cell phone number for tomorrow History Interval history: Patient seen and examined. Follow up on low back pain which is still present. Overnight uneventful. No cp, sob, n/v or severe headaches. Imaging, old records , testing, labs, nursing notes reviewed. He wants more IV Dilaudid. Hospitalist Physical - Physical exam Narrative exam: GEN: WDWN, NAD, AWAKE, ALERT, ORIENTATED 3 CVS: RRR, NORMAL S1S2 LUNGS/CHEST: CTA B, NORMAL CHEST EXPANSION B, GOOD AIR ENTRY B ABD: SOFT NTND, GBS, NO REBOUND OR GUARDING MSK: FROM X 4 EXTREMITIES NEURO: CN 2-12 GROSSLY INTACT, NO NEW FOCAL DEFICITS PSY: Anxious - Constitutional Vitals: Temp Pulse Resp BP Pulse Ox 97.5 F L 72 20 181/100 98 12/01/16 08:02 12/01/16 09:28 12/01/16 08:02 12/01/16 09:28 12/01/16 08:02 Results - Labs CBC & Chem 7: 12/01/16 04:58 12/01/16 04:58 Labs: Laboratory Last Values WBC 11.4 K/mm3 (4.5-11.0) H 12/01/16 04:58 RBC 3.95 M/mm3 (3.65-5.03) 12/01/16 04:58 Hgb 10.5 gm/dl (11.8-15.2) L 12/01/16 04:58 Hct 33.1 % (35.5-45.6) L 12/01/16 04:58 MCV 84 fl (84-94) 12/01/16 04:58 MCH 27 pg (28-32) L 12/01/16 04:58 MCHC 32 % (32-34) 12/01/16 04:58 RDW 19.8 % (13.2-15.2) H 12/01/16 04:58 Plt Count 302 K/mm3 (140-440) 12/01/16 04:58 Lymph % (Auto) 7.0 % (13.4-35.0) L 11/27/16 04:26 [place] % (Auto) 3.5 % (0.0-7.3) 11/27/16 04:26 Eos % (Auto) 0.0 % (0.0-4.3) 11/27/16 04:26 Baso % (Auto) 0.1 % (0.0-1.8) 11/27/16 04:26 Lymph # 1.2 K/mm3 (1.2-5.4) 11/27/16 04:26 [place] # 0.6 K/mm3 (0.0-0.8) 11/27/16 04:26 Eos # 0.0 K/mm3 (0.0-0.4) 11/27/16 04:26 Baso # 0.0 K/mm3 (0.0-0.1) 11/27/16 04:26 Add Manual Diff Complete 11/30/16 04:30 Total Counted 100 11/30/16 04:30 Seg Neutrophils % White Sugar Syrup Operator 11/29/16 04:27 Seg Neuts % (Manual) 83.0 % (40.0-70.0) H 11/30/16 04:30 Band Neutrophils % 9.0 % 11/30/16 04:30 Lymphocytes % (Manual) 7.0 % (13.4-35.0) L 11/30/16 04:30 Reactive Lymphs % (Man) 0 % 11/30/16 04:30 Monocytes % (Manual) 1.0 % (0.0-7.3) 11/30/16 04:30 Eosinophils % (Manual) 0 % (0.0-4.3) 11/30/16 04:30 Basophils % (Manual) 0 % (0.0-1.8) 11/30/16 04:30 Metamyelocytes % 0 % 11/30/16 04:30 Myelocytes % 0 % 11/30/16 04:30 Promyelocytes % 0 % 11/30/16 04:30 Blast Cells % 0 % 11/30/16 04:30 Nucleated RBC % Not Reportable 11/30/16 04:30 Seg Neutrophils # 15.0 K/mm3 (1.8-7.7) H 11/27/16 04:26 Seg Neutrophils # Man 10.5 K/mm3 (1.8-7.7) H 11/30/16 04:30 Band Neutrophils # 1.1 K/mm3 11/30/16 04:30 Lymphocytes # (Manual) 0.9 K/mm3 (1.2-5.4) L 11/30/16 04:30 Abs React Lymphs (Man) 0.0 K/mm3 11/30/16 04:30 Monocytes # (Manual) 0.1 K/mm3 (0.0-0.8) 11/30/16 04:30 Eosinophils # (Manual) 0.0 K/mm3 (0.0-0.4) 11/30/16 04:30 Basophils # (Manual) 0.0 K/mm3 (0.0-0.1) 11/30/16 04:30 Metamyelocytes # 0.0 K/mm3 11/30/16 04:30 Myelocytes # 0.0 K/mm3 11/30/16 04:30 Promyelocytes # 0.0 K/mm3 11/30/16 04:30 Blast Cells # 0.0 K/mm3 11/30/16 04:30 WBC Morphology Not Reportable 11/30/16 04:30 Hypersegmented Neuts Not Reportable 11/30/16 04:30 Hyposegmented Neuts Not Reportable 11/30/16 04:30 Hypogranular Neuts Not Reportable 11/30/16 04:30 Smudge Cells Not Reportable 11/30/16 04:30 Toxic Granulation Not Reportable 11/30/16 04:30 Toxic Vacuolation Not Reportable 11/30/16 04:30 Dohle Bodies Not Reportable 11/30/16 04:30 Pelger-Huet Anomaly Not Reportable 11/30/16 04:30 Brittani Rods Not Reportable 11/30/16 04:30 Platelet Estimate Appears normal 11/30/16 04:30 Clumped Platelets Not Reportable 11/30/16 04:30 Plt Clumps, EDTA Not Reportable 11/30/16 04:30 Large Platelets Not Reportable 11/30/16 04:30 Giant Platelets Not Reportable 11/30/16 04:30 Platelet Satelliting Not Reportable 11/30/16 04:30 Plt Morphology Comment Not Reportable 11/30/16 04:30 RBC Morphology Not Reportable 11/30/16 04:30 Dimorphic RBCs Not Reportable 11/30/16 04:30 Polychromasia Not Reportable 11/30/16 04:30 Hypochromasia 1+ 11/30/16 04:30 Poikilocytosis Not Reportable 11/30/16 04:30 Anisocytosis 1+ 11/30/16 04:30 Microcytosis Not Reportable 11/30/16 04:30 Macrocytosis Not Reportable 11/30/16 04:30 Spherocytes Not Reportable 11/30/16 04:30 Pappenheimer Bodies Not Reportable 11/30/16 04:30 Sickle Cells Not Reportable 11/30/16 04:30 Target Cells Not Reportable 11/30/16 04:30 Tear Drop Cells Not Reportable 11/30/16 04:30 Ovalocytes Few 11/30/16 04:30 Helmet Cells Not Reportable 11/30/16 04:30 [place] Bodies Not Reportable 11/30/16 04:30 [place] Rings Not Reportable 11/30/16 04:30 [place] Cells Not Reportable 11/30/16 04:30 Bite Cells Not Reportable 11/30/16 04:30 Crenated Cell Not Reportable 11/30/16 04:30 Elliptocytes Few 11/30/16 04:30 Acanthocytes (Spur) Not Reportable 11/30/16 04:30 Rouleaux Not Reportable 11/30/16 04:30 Hemoglobin C Crystals Not Reportable 11/30/16 04:30 Schistocytes Not Reportable 11/30/16 04:30 Malaria parasites Not Reportable 11/30/16 04:30 Willis Bodies Not Reportable 11/30/16 04:30 Hem Pathologist Commnt No 11/30/16 04:30 PT 13.3 Sec. (12.2-14.9) 11/26/16 01:07 INR 1.02 (0.87-1.13) 11/26/16 01:07 APTT 29.7 Sec. (24.2-36.6) 11/26/16 01:07 Sodium 138 mmol/L (137-145) 12/01/16 04:58 Potassium 4.6 mmol/L (3.6-5.0) 12/01/16 04:58 Chloride 97.0 mmol/L (98-107) L 12/01/16 04:58 Carbon Dioxide 28 mmol/L (22-30) 12/01/16 04:58 Anion Gap 18 mmol/L 12/01/16 04:58 BUN 36 mg/dL (9-20) H 12/01/16 04:58 Creatinine 0.6 mg/dL (0.8-1.5) L 12/01/16 04:58 Estimated GFR > 60 ml/min 12/01/16 04:58 BUN/Creatinine Ratio 60.00 % 12/01/16 04:58 Glucose 157 mg/dL (75-100) H 12/01/16 04:58 Lactic Acid 2.2 mmol/L (0.7-2.0) H* 11/26/16 01:07 Calcium 8.0 mg/dL (8.4-10.2) L 12/01/16 04:58 Total Bilirubin 0.2 mg/dL (0.1-1.2) 11/27/16 04:26 AST 16 units/L (5-40) 11/27/16 04:26 ALT 11 units/L (7-56) 11/27/16 04:26 Alkaline Phosphatase 118 units/L (35-129) 11/27/16 04:26 Total Creatine Kinase 47 units/L (55-170) L 11/26/16 01:07 Troponin T 0.048 ng/mL (0.00-0.029) H 11/26/16 00:58 C-Reactive Protein 0.20 mg/dL (0.00-1.30) 12/01/16 00:35 NT-Pro-B Natriuret Pep 1090 pg/mL (0-900) H 11/26/16 01:07 Total Protein 6.4 g/dL (6.3-8.2) 11/27/16 04:26 Albumin 2.9 g/dL (3.9-5) L 11/27/16 04:26 Albumin/Globulin Ratio 0.8 % 11/27/16 04:26 Triglycerides 155 mg/dL (2-149) H 11/26/16 00:58 Cholesterol 150 mg/dL (50-199) 11/26/16 00:58 LDL Cholesterol Direct 81 mg/dL (50-130) 11/26/16 00:58 HDL Cholesterol 38 mg/dL (40-59) L 11/26/16 00:58 Cholesterol/HDL Ratio 3.94 % 11/26/16 00:58 Urine Color Red (Yellow) 11/26/16 02:47 Urine Turbidity Slightly-cloudy (Clear) 11/26/16 02:47 Urine pH 7.0 (5.0-7.0) 11/26/16 02:47 Ur Specific [place] 1.025 (1.003-1.030) 11/26/16 02:47 Urine Protein 100 mg/dl mg/dL (Negative) 11/26/16 02:47 Urine Glucose (UA) Neg mg/dL (Negative) 11/26/16 02:47 Urine Ketones Neg mg/dL (Negative) 11/26/16 02:47 Urine Blood Lg (Negative) 11/26/16 02:47 Urine Nitrite Pos (Negative) 11/26/16 02:47 Urine Bilirubin Neg (Negative) 11/26/16 02:47 Urine Urobilinogen 4.0 mg/dL (<2.0) 11/26/16 02:47 Ur Leukocyte Esterase Sm (Negative) 11/26/16 02:47 Urine WBC (Auto) 99.0 /HPF (0.0-6.0) H 11/26/16 02:47 Urine RBC (Auto) > 182.0 /HPF (0.0-6.0) 11/26/16 02:47 U Epithel Cells (Auto) 1.0 /HPF (0-13.0) 11/26/16 02:47 Urine Bacteria (Auto) 1+ /HPF (Negative) 11/26/16 02:47 Urine Mucus Few /HPF 11/26/16 02:47 Vancomycin Trough 20.3 ug/mL (5.0-20.0) H 11/29/16 04:27
[2016-12-01] MEDS ORDERED: APRESOLINE IV PRN (11:33)
[2016-12-01] MEDS: HEPARIN SUB-Q SCH (21:07)
[2016-12-02] MEDS: DUONEB 0.5 MG-3 MG/3 ML SOLN IH SCH ×4 (01:32→20:04)
[2016-12-02] MEDS: DILAUDID IV PRN ×4 (03:38→19:29)
[2016-12-02] MEDS: VANCOMYCIN VIAL 1,250 MG in NACL 0.9% 250ML 250 ML IV SCH ×2 (05:18→17:52)
[2016-12-02] MEDS: LASIX PO SCH ×2 (05:18→17:52)
[2016-12-02] MEDS ORDERED: SUBLIMAZE IV ONE (08:22)
[2016-12-02] MEDS ORDERED: NACL 0.9% 500 ML 0 ML ONE (08:27)
[2016-12-02 08:47] LABS: Hematocrit 39.3 % (35.5-45.6); Hemoglobin 12.4 gm/dl (11.8-15.2); Mean Corpuscular HGB Conc 32 % (32-34); Mean Corpuscular Hemoglobin 27 pg (28-32); Mean Corpuscular Volume 84 fl (84-94); Platelet Count 376 K/mm3 (140-440); Red Blood Count 4.66 M/mm3 (3.65-5.03); Red Cell Distribution Width 19.9 % (13.2-15.2); White Blood Count 14.3 K/mm3 (4.5-11.0)
[2016-12-02] MEDS ORDERED: NACL 0.9% 500 ML 500 ML IV SCH (09:00)
[2016-12-02 09:03] LABS: Anion Gap 14 mmol/L; BUN/Creatinine Ratio 52.85; Blood Urea Nitrogen 37 mg/dL (9-20); Calcium 8.3 mg/dL (8.4-10.2); Carbon Dioxide 32 mmol/L (22-30); Chloride 96.4 mmol/L (98-107); Glucose 120 mg/dL (75-100); Potassium 4.3 mmol/L (3.6-5.0); Sodium 138 mmol/L (137-145)
[2016-12-02] MEDS ORDERED: VERSED IV ONE (10:30)
--- NOTE | 2016-12-02 10:54 | Cat Scan Report ---
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 DESCRIPTION OF PROCEDURE: Informed consent was obtained. Sterile technique was utilized. Conscious sedation was accomplished with Versed and fentanyl. The patient was sedated for 25 minutes. Intra-observer time was 20 minutes. Independent cardiorespiratory monitoring by RN. Using CT guidance, a 15 cm 19-gauge introducer needle was advanced to the right paraspinal soft tissues at the level of T8-9. Please note, there was no radiographic window to advance the needle into the T8-9 disc space. 3 fine needle aspirations of the inflamed right paraspinal soft tissues are obtained for pathology. One 20-gauge core biopsy was also obtained. The samples were sent for culture. The patient tolerated the procedure with minor discomfort at the biopsy site. Post biopsy scan demonstrates no evidence for pneumothorax or hemorrhage. The patient was sent back to the floor in stable condition. IMPRESSION: Successful CT-guided biopsy of the T8-9 disc/paraspinal soft tissues at the area of inflammation. Samples were sent to the laboratory for culture.
[2016-12-02] MEDS: ROCEPHIN/NS 2 GM/100 ML 100 ML IV SCH (11:05)
[2016-12-02] MEDS: NACL 0.9% 1000 ML 1,000 ML IV SCH (11:05)
[2016-12-02] MEDS: ASPIRIN PO SCH (11:07)
[2016-12-02] MEDS: NORVASC PO SCH (11:07)
[2016-12-02] MEDS: LOPRESSOR PO SCH ×2 (11:08→22:27)
[2016-12-02] MEDS: IMDUR PO SCH (11:08)
[2016-12-02] MEDS: ROXICODONE PO PRN ×3 (11:08→22:24)
[2016-12-02] MEDS: HEPARIN SUB-Q SCH ×2 (11:09→22:25)
--- NOTE | 2016-12-02 11:59 | Progress Note ---
Assessment and Plan Current antibiotics: Ceftriaxone 2 grams IV q24h 11/26 --> Vancomcyin 1250mg IV q12h 11/26 --> ASSESSMENT: Audrey Ceron is a 56 year old man with end stage heart failure (EF 10-15%), COPD and alcohol abuse who was admitted to [facility] on 11/25/16 after leaving hospice care on 11/23/16. He said they informed him that he did not have much longer to live, he then decided to elope from hospice. He is now complaining of severe mid back pain with associated fevers. CT scan revealed diskitis at T8-T9 with paraspinal abnormal soft tissue. Problem list: 1. T8-T9 diskitis with paraspinal inflammation -Patient does have back pain with fevers. Ideally the best approach here would be to obtain aspiration at that spinal level or paraspinal area for culture to guide treatment. Without culture the only choice would be to treat empirically for the most common causes of diskitis/osteomyelitis. Would obtain neurosurgery input. -patient with continued back pain, would like the MRI to evaluate the T8-T9 diskitis, if fluid is present would ask IR to do an aspiration 2. Leukocytosis -Secondary to # 1 3. End stage heart failure -EF 10-15% PLAN: 1. Await results of biopsy done today 2. If indeed he is serious about going back into hospice care and likely not give him long-term antibiotics as it would not change his course ultimately. 3. Follow up blood cultures (NGTD) 4. Continue vancomycin and ceftriaxone for now Mati Munoz MD [facility] Office: [phone] Subjective Date of service: 12/02/16 Principal diagnosis: T8-T9 diskitis Interval history: No change in back pain. Still "severe" and pain medicines "aren't helping." He now states that he wants to "go back to hospice but not the one he was at." Status post bone biopsy earlier today. ROS: No subjective fever or chills. No nausea, vomiting or diarrhea. No shortness of breath, cough or pleuritic chest pain Objective - Exam Narrative Exam: GENERAL: Well-developed, well-nourished appearing male who is alert and in no acute distress. More anxious. HEAD: Normocephalic. No lesions seen. EYES: Pupils are equal reactive to light and accommodation. There is no scleral icterus. Optic fundi are not examined. EARS: Tympanic membranes are normal. THROAT: Oropharynx is normal with no evidence of oral candidiasis or pharyngitis. Poor dentition with multiple missing teeth NECK: Supple. No enlargement of the thyroid gland. No significant cervical lymphadenopathy. No jugular venous distention at 30. LUNGS: Clear with no adventitious sounds. HEART: Regular rate. S1 and S2 are normal. There are no murmurs, gallops, clicks or rubs heard. ABDOMEN: Soft and nontender. Liver and spleen are not palpably enlarged or tender. No palpable masses. Bowel sounds are normoactive. EXTREMITIES: No rash, peripheral lymphadenopathy, clubbing or edema. Some tenderness to palpation over lower back with no other objective findings. : Not examined NEUROLOGIC: No focal findings. - Constitutional Vitals: Vital Signs Temp Pulse Resp BP Pulse Ox 97.6 F 57 L 16 160/88 96 12/02/16 10:48 12/02/16 11:07 12/02/16 10:48 12/02/16 11:07 12/02/16 10:34 Temperature -Last 24 Hours Temperature 97.6 F Temperature 98.4 F Temperature 97.7 F Temperature 97.4 F - Labs CBC & Chem 7: 12/02/16 07:52 12/02/16 07:52 Labs: Abnormal lab results Microbiology 12/02: T-spine biopsy: Gram stain with many PMNs, moderate monos & NOS. Culture pending. Path pending 11/26/16 01:41 Peripheral/Venous Blood Culture - Final NO GROWTH AFTER 5 DAYS 11/26/16 01:41 Peripheral/Venous Blood Culture - Final NO GROWTH AFTER 5 DAYS 11/27/16 Unknown Urine,Clean Catch Urine Culture - Final 11/26/16 02:20 Nasopharyngeal Swab Influenza Types A,B Antigen (CHRISTA) - negative
--- NOTE | 2016-12-02 15:11 | Progress Note ---
Assessment and Plan Assessment and plan: Patient is a 56-year-old man with a history of cardiomyopathy, CHF with EF 10-15 %, COPD and alcohol abuse who presented with severe LBP with associated fevers, Ct scan revealed t8-t9 discitis with paraspinal abnormal soft tissue. He was admitted to [facility] on 11/25/16 after leaving hospice care on 11/23/16. This morning the patient states to me that he knows this time is short as he was told that he did not have much longer to leave. He stated that he left the hospice because it was too far and the pupil did not treat him wall. Initial attempt to transfer the patient to [place] was unsuccessful. Patient today tells me that he wants to go back Hospice. Does not want to pursue any further treatment. He's remained afebrile. Discussed with infectious diseases physician he is not a candidate for long-term antibiotics if he indeed blasted go back to hospice. 1. T8-T9 discitis 2. hypertension. Stable continue current therapy 3. Acute on chronic combined heart failure 4. End-stage cardiomyopathy 5. Low back pain-continue pain control History Interval history: Follow-up discitis Patient seen and examined this morning in no acute distress, continues to complain of low back pain. Denies any chest pain, nausea, vomiting, diarrhea No fever noted blood pressure controlled No adverse events reported to me by nursing staff Hospitalist Physical - Physical exam Narrative exam: VITAL SIGNS: Reviewed. GENERAL: The patient appeared well nourished and normally developed. Vital signs as documented. HEAD: No signs of head trauma. EYES: Pupils are equal. Extraocular motions intact. EARS: Hearing grossly intact. MOUTH: Oropharynx is normal. NECK: No adenopathy, no JVD. CHEST: Chest with clear breath sounds bilaterally. No wheezes, rales, or rhonchi. CARDIAC: Regular rate and rhythm. S1 and S2, without murmurs, gallops, or rubs. VASCULAR: No Edema. Peripheral pulses normal and equal in all extremities. ABDOMEN: Soft, without detectable tenderness. No sign of distention. No rebound or guarding, and no masses palpated. Bowel Sounds normal. MUSCULOSKELETAL: Good range of motion of all major joints. Extremities without clubbing, cyanosis or edema. NEUROLOGIC EXAM: Alert and oriented x 3. No focal sensory or strength deficits. Speech normal. Follows commands. PSYCHIATRIC: Mood normal. SKIN: No rash or lesions. - Constitutional Vitals: Temp Pulse Resp BP Pulse Ox 97.6 F 55 L 16 154/71 97 12/02/16 11:57 12/02/16 11:57 12/02/16 11:57 12/02/16 11:57 12/02/16 12:49 General appearance: Present: mild distress, well-nourished, obese Results - Labs CBC & Chem 7: 12/02/16 07:52 12/02/16 07:52 Labs: Laboratory Last Values WBC 14.3 K/mm3 (4.5-11.0) H 12/02/16 07:52 RBC 4.66 M/mm3 (3.65-5.03) 12/02/16 07:52 Hgb 12.4 gm/dl (11.8-15.2) 12/02/16 07:52 Hct 39.3 % (35.5-45.6) D 12/02/16 07:52 MCV 84 fl (84-94) 12/02/16 07:52 MCH 27 pg (28-32) L 12/02/16 07:52 MCHC 32 % (32-34) 12/02/16 07:52 RDW 19.9 % (13.2-15.2) H 12/02/16 07:52 Plt Count 376 K/mm3 (140-440) 12/02/16 07:52 Lymph % (Auto) 7.0 % (13.4-35.0) L 11/27/16 04:26 Harvey % (Auto) 3.5 % (0.0-7.3) 11/27/16 04:26 Eos % (Auto) 0.0 % (0.0-4.3) 11/27/16 04:26 Baso % (Auto) 0.1 % (0.0-1.8) 11/27/16 04:26 Lymph # 1.2 K/mm3 (1.2-5.4) 11/27/16 04:26 Harvey # 0.6 K/mm3 (0.0-0.8) 11/27/16 04:26 Eos # 0.0 K/mm3 (0.0-0.4) 11/27/16 04:26 Baso # 0.0 K/mm3 (0.0-0.1) 11/27/16 04:26 Add Manual Diff Complete 11/30/16 04:30 Total Counted 100 11/30/16 04:30 Seg Neutrophils % [employer] 11/29/16 04:27 Seg Neuts % (Manual) 83.0 % (40.0-70.0) H 11/30/16 04:30 Band Neutrophils % 9.0 % 11/30/16 04:30 Lymphocytes % (Manual) 7.0 % (13.4-35.0) L 11/30/16 04:30 Reactive Lymphs % (Man) 0 % 11/30/16 04:30 Monocytes % (Manual) 1.0 % (0.0-7.3) 11/30/16 04:30 Eosinophils % (Manual) 0 % (0.0-4.3) 11/30/16 04:30 Basophils % (Manual) 0 % (0.0-1.8) 11/30/16 04:30 Metamyelocytes % 0 % 11/30/16 04:30 Myelocytes % 0 % 11/30/16 04:30 Promyelocytes % 0 % 11/30/16 04:30 Blast Cells % 0 % 11/30/16 04:30 Nucleated RBC % Not Reportable 11/30/16 04:30 Seg Neutrophils # 15.0 K/mm3 (1.8-7.7) H 11/27/16 04:26 Seg Neutrophils # Man 10.5 K/mm3 (1.8-7.7) H 11/30/16 04:30 Band Neutrophils # 1.1 K/mm3 11/30/16 04:30 Lymphocytes # (Manual) 0.9 K/mm3 (1.2-5.4) L 11/30/16 04:30 Abs React Lymphs (Man) 0.0 K/mm3 11/30/16 04:30 Monocytes # (Manual) 0.1 K/mm3 (0.0-0.8) 11/30/16 04:30 Eosinophils # (Manual) 0.0 K/mm3 (0.0-0.4) 11/30/16 04:30 Basophils # (Manual) 0.0 K/mm3 (0.0-0.1) 11/30/16 04:30 Metamyelocytes # 0.0 K/mm3 11/30/16 04:30 Myelocytes # 0.0 K/mm3 11/30/16 04:30 Promyelocytes # 0.0 K/mm3 11/30/16 04:30 Blast Cells # 0.0 K/mm3 11/30/16 04:30 WBC Morphology Not Reportable 11/30/16 04:30 Hypersegmented Neuts Not Reportable 11/30/16 04:30 Hyposegmented Neuts Not Reportable 11/30/16 04:30 Hypogranular Neuts Not Reportable 11/30/16 04:30 Smudge Cells Not Reportable 11/30/16 04:30 Toxic Granulation Not Reportable 11/30/16 04:30 Toxic Vacuolation Not Reportable 11/30/16 04:30 Dohle Bodies Not Reportable 11/30/16 04:30 Pelger-Huet Anomaly Not Reportable 11/30/16 04:30 Brittani Rods Not Reportable 11/30/16 04:30 Platelet Estimate Appears normal 11/30/16 04:30 Clumped Platelets Not Reportable 11/30/16 04:30 Plt Clumps, EDTA Not Reportable 11/30/16 04:30 Large Platelets Not Reportable 11/30/16 04:30 Giant Platelets Not Reportable 11/30/16 04:30 Platelet Satelliting Not Reportable 11/30/16 04:30 Plt Morphology Comment Not Reportable 11/30/16 04:30 RBC Morphology Not Reportable 11/30/16 04:30 Dimorphic RBCs Not Reportable 11/30/16 04:30 Polychromasia Not Reportable 11/30/16 04:30 Hypochromasia 1+ 11/30/16 04:30 Poikilocytosis Not Reportable 11/30/16 04:30 Anisocytosis 1+ 11/30/16 04:30 Microcytosis Not Reportable 11/30/16 04:30 Macrocytosis Not Reportable 11/30/16 04:30 Spherocytes Not Reportable 11/30/16 04:30 Pappenheimer Bodies Not Reportable 11/30/16 04:30 Sickle Cells Not Reportable 11/30/16 04:30 Target Cells Not Reportable 11/30/16 04:30 Tear Drop Cells Not Reportable 11/30/16 04:30 Ovalocytes Few 11/30/16 04:30 Helmet Cells Not Reportable 11/30/16 04:30 [place] Bodies Not Reportable 11/30/16 04:30 [place] Rings Not Reportable 11/30/16 04:30 Eliza Cells Not Reportable 11/30/16 04:30 Bite Cells Not Reportable 11/30/16 04:30 Crenated Cell Not Reportable 11/30/16 04:30 Elliptocytes Few 11/30/16 04:30 Acanthocytes (Spur) Not Reportable 11/30/16 04:30 Rouleaux Not Reportable 11/30/16 04:30 Hemoglobin C Crystals Not Reportable 11/30/16 04:30 Schistocytes Not Reportable 11/30/16 04:30 Malaria parasites Not Reportable 11/30/16 04:30 Willis Bodies Not Reportable 11/30/16 04:30 Hem Pathologist Commnt No 11/30/16 04:30 PT 13.3 Sec. (12.2-14.9) 11/26/16 01:07 INR 1.02 (0.87-1.13) 11/26/16 01:07 APTT 29.7 Sec. (24.2-36.6) 11/26/16 01:07 Sodium 138 mmol/L (137-145) 12/02/16 07:52 Potassium 4.3 mmol/L (3.6-5.0) 12/02/16 07:52 Chloride 96.4 mmol/L (98-107) L 12/02/16 07:52 Carbon Dioxide 32 mmol/L (22-30) H 12/02/16 07:52 Anion Gap 14 mmol/L 12/02/16 07:52 BUN 37 mg/dL (9-20) H 12/02/16 07:52 Creatinine 0.7 mg/dL (0.8-1.5) L 12/02/16 07:52 Estimated GFR > 60 ml/min 12/02/16 07:52 BUN/Creatinine Ratio 52.85 % 12/02/16 07:52 Glucose 120 mg/dL (75-100) H 12/02/16 07:52 Lactic Acid 2.2 mmol/L (0.7-2.0) H* 11/26/16 01:07 Calcium 8.3 mg/dL (8.4-10.2) L 12/02/16 07:52 Total Bilirubin 0.2 mg/dL (0.1-1.2) 11/27/16 04:26 AST 16 units/L (5-40) 11/27/16 04:26 ALT 11 units/L (7-56) 11/27/16 04:26 Alkaline Phosphatase 118 units/L (35-129) 11/27/16 04:26 Total Creatine Kinase 47 units/L (55-170) L 11/26/16 01:07 Troponin T 0.048 ng/mL (0.00-0.029) H 11/26/16 00:58 C-Reactive Protein 0.20 mg/dL (0.00-1.30) 12/01/16 00:35 NT-Pro-B Natriuret Pep 1090 pg/mL (0-900) H 11/26/16 01:07 Total Protein 6.4 g/dL (6.3-8.2) 11/27/16 04:26 Albumin 2.9 g/dL (3.9-5) L 11/27/16 04:26 Albumin/Globulin Ratio 0.8 % 11/27/16 04:26 Triglycerides 155 mg/dL (2-149) H 11/26/16 00:58 Cholesterol 150 mg/dL (50-199) 11/26/16 00:58 LDL Cholesterol Direct 81 mg/dL (50-130) 11/26/16 00:58 HDL Cholesterol 38 mg/dL (40-59) L 11/26/16 00:58 Cholesterol/HDL Ratio 3.94 % 11/26/16 00:58 Urine Color Red (Yellow) 11/26/16 02:47 Urine Turbidity Slightly-cloudy (Clear) 11/26/16 02:47 Urine pH 7.0 (5.0-7.0) 11/26/16 02:47 Ur Specific Gore 1.025 (1.003-1.030) 11/26/16 02:47 Urine Protein 100 mg/dl mg/dL (Negative) 11/26/16 02:47 Urine Glucose (UA) Neg mg/dL (Negative) 11/26/16 02:47 Urine Ketones Neg mg/dL (Negative) 11/26/16 02:47 Urine Blood Lg (Negative) 11/26/16 02:47 Urine Nitrite Pos (Negative) 11/26/16 02:47 Urine Bilirubin Neg (Negative) 11/26/16 02:47 Urine Urobilinogen 4.0 mg/dL (<2.0) 11/26/16 02:47 Ur Leukocyte Esterase Sm (Negative) 11/26/16 02:47 Urine WBC (Auto) 99.0 /HPF (0.0-6.0) H 11/26/16 02:47 Urine RBC (Auto) > 182.0 /HPF (0.0-6.0) 11/26/16 02:47 U Epithel Cells (Auto) 1.0 /HPF (0-13.0) 11/26/16 02:47 Urine Bacteria (Auto) 1+ /HPF (Negative) 11/26/16 02:47 Urine Mucus Few /HPF 11/26/16 02:47 Vancomycin Trough 20.3 ug/mL (5.0-20.0) H 11/29/16 04:27 Microbiology 12/02/16 10:00 Other (Please Specify:) - Other Surgical Culture - Preliminary
--- NOTE | 2016-12-02 15:22 | Discharge Summary ---
Providers - Providers Date of Admission: 11/26/16 09:57 Date of discharge: 12/02/16 Attending physician: GEETHA TORREZ MD Primary care physician: [facility] [employer] [facility] Hospitalization Reason for admission: low back pain Condition: Stable Hospital course: Patient is a 56-year-old man with a history of cardiomyopathy, CHF with EF 10-15 %, COPD and alcohol abuse who presented with severe LBP with associated fevers, Ct scan revealed t8-t9 discitis with paraspinal abnormal soft tissue. He was admitted to [facility] on 11/25/16 after leaving hospice care on 11/23/16. This morning the patient states to me that he knows this time is short as he was told that he did not have much longer to leave. He stated that he left the hospice because it was too far and the pupil did not treat him wall. Initial attempt to transfer the patient to [facility] was unsuccessful. Patient today tells me that he wants to go back Hospice. Does not want to pursue any further treatment. He's remained afebrile. Discussed with infectious diseases physician he is not a candidate for long-term antibiotics if he indeed blasted go back to hospice. Discharge diagnosis 1. T8-T9 discitis 2. hypertension. 3. Acute on chronic combined heart failure 4. End-stage cardiomyopathy 5. Low back pain-continue pain control 6. Bradycardia Disposition: DISCHARGED TO HOME OR SELFCARE Time spent for discharge: 35 mins Core Measure Documentation - Palliative Care Palliative Care/ Comfort Measures: Not Applicable - Core Measures Any of the following diagnoses?: heart failure - VTE Discharge Requirements Deep Vein Thrombosis/Pulmonary Embolism Present on Admission: No - Heart Failure Discharge Requirements KO/ARB for LVSD if EF <40%: Yes Reason for no KO/ARB: Patient refusal Beta ryan at discharge: Yes Exam - Physical Exam Narrative exam: VITAL SIGNS: Reviewed. GENERAL: The patient appeared well nourished and normally developed. Vital signs as documented. HEAD: No signs of head trauma. EYES: Pupils are equal. Extraocular motions intact. EARS: Hearing grossly intact. MOUTH: Oropharynx is normal. NECK: No adenopathy, no JVD. CHEST: Chest with clear breath sounds bilaterally. No wheezes, rales, or rhonchi. CARDIAC: Regular rate and rhythm. S1 and S2, without murmurs, gallops, or rubs. VASCULAR: No Edema. Peripheral pulses normal and equal in all extremities. ABDOMEN: Soft, without detectable tenderness. No sign of distention. No rebound or guarding, and no masses palpated. Bowel Sounds normal. MUSCULOSKELETAL: Good range of motion of all major joints. Extremities without clubbing, cyanosis or edema. NEUROLOGIC EXAM: Alert and oriented x 3. No focal sensory or strength deficits. Speech normal. Follows commands. PSYCHIATRIC: Mood normal. SKIN: No rash or lesions. - Constitutional Vitals: Temp Pulse Resp BP Pulse Ox 97.6 F 55 L 16 154/71 97 12/02/16 11:57 12/02/16 11:57 12/02/16 11:57 12/02/16 11:57 12/02/16 12:49 Plan Activity: advance as tolerated, fall precautions Diet: low salt Special Instructions: home hospice ((T is a) Follow up with: PRIMARY CARE, [Primary Care Provider] - 3-5 Days Prescriptions: amLODIPine [Norvasc] 10 mg PO QDAY #30 tablet oxyCODONE [Roxicodone TAB] 15 mg PO Q4H PRN #20 tablet PRN Reason: Pain, Moderate (4-6) Prednisone [predniSONE 10 mg (6-Day Pack, 21 Tabs)] 10 mg PO .TAPER #1 tab.ds.pk
--- NOTE | 2016-12-02 21:37 | Progress Note ---
Assessment and Plan Assessment and plan: Patient is a 56-year-old man with a history of cardiomyopathy, CHF with EF 10-15 %, COPD and alcohol abuse who presented with severe LBP with associated fevers, Ct scan revealed t8-t9 discitis with paraspinal abnormal soft tissue. He was admitted to [facility] on 11/25/16 after leaving hospice care on 11/23/16. This morning the patient states to me that he knows this time is short as he was told that he did not have much longer to leave. He stated that he left the hospice because it was too far and the pupil did not treat him wall. Initial attempt to transfer the patient to [place] was unsuccessful. Patient today tells me that he wants to go back Hospice. Does not want to pursue any further treatment. He's remained afebrile. Discussed with infectious diseases physician he is not a candidate for long-term antibiotics if he indeed blasted go back to hospice. 1. T8-T9 discitis- Continue Antibiotics, patient now wants to go back to Hospice, will discontinue antibiotics on transfer, The patient was discharged but appears he does not have a home to go to. 2. hypertension. Stable continue current therapy 3. Acute on chronic combined heart failure 4. End-stage cardiomyopathy 5. Low back pain-continue pain control 6. DVT/GI Prophy History Interval history: Follow-up discitis Patient seen and examined this morning in no acute distress, continues to complain of low back pain. Denies any chest pain, nausea, vomiting, diarrhea No fever noted blood pressure controlled No adverse events reported to me by nursing staff Hospitalist Physical - Physical exam Narrative exam: VITAL SIGNS: Reviewed. GENERAL: The patient appeared well nourished and normally developed. Vital signs as documented. HEAD: No signs of head trauma. EYES: Pupils are equal. Extraocular motions intact. EARS: Hearing grossly intact. MOUTH: Oropharynx is normal. NECK: No adenopathy, no JVD. CHEST: Chest with clear breath sounds bilaterally. No wheezes, rales, or rhonchi. CARDIAC: Regular rate and rhythm. S1 and S2, without murmurs, gallops, or rubs. VASCULAR: No Edema. Peripheral pulses normal and equal in all extremities. ABDOMEN: Soft, without detectable tenderness. No sign of distention. No rebound or guarding, and no masses palpated. Bowel Sounds normal. MUSCULOSKELETAL: Good range of motion of all major joints. Extremities without clubbing, cyanosis or edema. NEUROLOGIC EXAM: Alert and oriented x 3. No focal sensory or strength deficits. Speech normal. Follows commands. PSYCHIATRIC: Mood normal. SKIN: No rash or lesions. - Constitutional Vitals: Temp Pulse Resp BP Pulse Ox 96.9 F L 54 L 18 138/77 96 12/02/16 16:15 12/02/16 16:15 12/02/16 16:15 12/02/16 16:15 12/02/16 19:55 General appearance: Present: mild distress, well-nourished, obese Results - Labs CBC & Chem 7: 12/02/16 07:52 12/02/16 07:52 Labs: Laboratory Last Values WBC 14.3 K/mm3 (4.5-11.0) H 12/02/16 07:52 RBC 4.66 M/mm3 (3.65-5.03) 12/02/16 07:52 Hgb 12.4 gm/dl (11.8-15.2) 12/02/16 07:52 Hct 39.3 % (35.5-45.6) D 12/02/16 07:52 MCV 84 fl (84-94) 12/02/16 07:52 MCH 27 pg (28-32) L 12/02/16 07:52 MCHC 32 % (32-34) 12/02/16 07:52 RDW 19.9 % (13.2-15.2) H 12/02/16 07:52 Plt Count 376 K/mm3 (140-440) 12/02/16 07:52 Lymph % (Auto) 7.0 % (13.4-35.0) L 11/27/16 04:26 [place] % (Auto) 3.5 % (0.0-7.3) 11/27/16 04:26 Eos % (Auto) 0.0 % (0.0-4.3) 11/27/16 04:26 Baso % (Auto) 0.1 % (0.0-1.8) 11/27/16 04:26 Lymph # 1.2 K/mm3 (1.2-5.4) 11/27/16 04:26 [place] # 0.6 K/mm3 (0.0-0.8) 11/27/16 04:26 Eos # 0.0 K/mm3 (0.0-0.4) 11/27/16 04:26 Baso # 0.0 K/mm3 (0.0-0.1) 11/27/16 04:26 Add Manual Diff Complete 11/30/16 04:30 Total Counted 100 11/30/16 04:30 Seg Neutrophils % [employer] 11/29/16 04:27 Seg Neuts % (Manual) 83.0 % (40.0-70.0) H 11/30/16 04:30 Band Neutrophils % 9.0 % 11/30/16 04:30 Lymphocytes % (Manual) 7.0 % (13.4-35.0) L 11/30/16 04:30 Reactive Lymphs % (Man) 0 % 11/30/16 04:30 Monocytes % (Manual) 1.0 % (0.0-7.3) 11/30/16 04:30 Eosinophils % (Manual) 0 % (0.0-4.3) 11/30/16 04:30 Basophils % (Manual) 0 % (0.0-1.8) 11/30/16 04:30 Metamyelocytes % 0 % 11/30/16 04:30 Myelocytes % 0 % 11/30/16 04:30 Promyelocytes % 0 % 11/30/16 04:30 Blast Cells % 0 % 11/30/16 04:30 Nucleated RBC % Not Reportable 11/30/16 04:30 Seg Neutrophils # 15.0 K/mm3 (1.8-7.7) H 11/27/16 04:26 Seg Neutrophils # Man 10.5 K/mm3 (1.8-7.7) H 11/30/16 04:30 Band Neutrophils # 1.1 K/mm3 11/30/16 04:30 Lymphocytes # (Manual) 0.9 K/mm3 (1.2-5.4) L 11/30/16 04:30 Abs React Lymphs (Man) 0.0 K/mm3 11/30/16 04:30 Monocytes # (Manual) 0.1 K/mm3 (0.0-0.8) 11/30/16 04:30 Eosinophils # (Manual) 0.0 K/mm3 (0.0-0.4) 11/30/16 04:30 Basophils # (Manual) 0.0 K/mm3 (0.0-0.1) 11/30/16 04:30 Metamyelocytes # 0.0 K/mm3 11/30/16 04:30 Myelocytes # 0.0 K/mm3 11/30/16 04:30 Promyelocytes # 0.0 K/mm3 11/30/16 04:30 Blast Cells # 0.0 K/mm3 11/30/16 04:30 WBC Morphology Not Reportable 11/30/16 04:30 Hypersegmented Neuts Not Reportable 11/30/16 04:30 Hyposegmented Neuts Not Reportable 11/30/16 04:30 Hypogranular Neuts Not Reportable 11/30/16 04:30 Smudge Cells Not Reportable 11/30/16 04:30 Toxic Granulation Not Reportable 11/30/16 04:30 Toxic Vacuolation Not Reportable 11/30/16 04:30 Dohle Bodies Not Reportable 11/30/16 04:30 Pelger-Huet Anomaly Not Reportable 11/30/16 04:30 Brittani Rods Not Reportable 11/30/16 04:30 Platelet Estimate Appears normal 11/30/16 04:30 Clumped Platelets Not Reportable 11/30/16 04:30 Plt Clumps, EDTA Not Reportable 11/30/16 04:30 Large Platelets Not Reportable 11/30/16 04:30 Giant Platelets Not Reportable 11/30/16 04:30 Platelet Satelliting Not Reportable 11/30/16 04:30 Plt Morphology Comment Not Reportable 11/30/16 04:30 RBC Morphology Not Reportable 11/30/16 04:30 Dimorphic RBCs Not Reportable 11/30/16 04:30 Polychromasia Not Reportable 11/30/16 04:30 Hypochromasia 1+ 11/30/16 04:30 Poikilocytosis Not Reportable 11/30/16 04:30 Anisocytosis 1+ 11/30/16 04:30 Microcytosis Not Reportable 11/30/16 04:30 Macrocytosis Not Reportable 11/30/16 04:30 Spherocytes Not Reportable 11/30/16 04:30 Pappenheimer Bodies Not Reportable 11/30/16 04:30 Sickle Cells Not Reportable 11/30/16 04:30 Target Cells Not Reportable 11/30/16 04:30 Tear Drop Cells Not Reportable 11/30/16 04:30 Ovalocytes Few 11/30/16 04:30 Helmet Cells Not Reportable 11/30/16 04:30 [place] Bodies Not Reportable 11/30/16 04:30 [place] Rings Not Reportable 11/30/16 04:30 Eliza Cells Not Reportable 11/30/16 04:30 Bite Cells Not Reportable 11/30/16 04:30 Crenated Cell Not Reportable 11/30/16 04:30 Elliptocytes Few 11/30/16 04:30 Acanthocytes (Spur) Not Reportable 11/30/16 04:30 Rouleaux Not Reportable 11/30/16 04:30 Hemoglobin C Crystals Not Reportable 11/30/16 04:30 Schistocytes Not Reportable 11/30/16 04:30 Malaria parasites Not Reportable 11/30/16 04:30 Willis Bodies Not Reportable 11/30/16 04:30 Hem Pathologist Commnt No 11/30/16 04:30 PT 13.3 Sec. (12.2-14.9) 11/26/16 01:07 INR 1.02 (0.87-1.13) 11/26/16 01:07 APTT 29.7 Sec. (24.2-36.6) 11/26/16 01:07 Sodium 138 mmol/L (137-145) 12/02/16 07:52 Potassium 4.3 mmol/L (3.6-5.0) 12/02/16 07:52 Chloride 96.4 mmol/L (98-107) L 12/02/16 07:52 Carbon Dioxide 32 mmol/L (22-30) H 12/02/16 07:52 Anion Gap 14 mmol/L 12/02/16 07:52 BUN 37 mg/dL (9-20) H 12/02/16 07:52 Creatinine 0.7 mg/dL (0.8-1.5) L 12/02/16 07:52 Estimated GFR > 60 ml/min 12/02/16 07:52 BUN/Creatinine Ratio 52.85 % 12/02/16 07:52 Glucose 120 mg/dL (75-100) H 12/02/16 07:52 Lactic Acid 2.2 mmol/L (0.7-2.0) H* 11/26/16 01:07 Calcium 8.3 mg/dL (8.4-10.2) L 12/02/16 07:52 Total Bilirubin 0.2 mg/dL (0.1-1.2) 11/27/16 04:26 AST 16 units/L (5-40) 11/27/16 04:26 ALT 11 units/L (7-56) 11/27/16 04:26 Alkaline Phosphatase 118 units/L (35-129) 11/27/16 04:26 Total Creatine Kinase 47 units/L (55-170) L 11/26/16 01:07 Troponin T 0.048 ng/mL (0.00-0.029) H 11/26/16 00:58 C-Reactive Protein 0.20 mg/dL (0.00-1.30) 12/01/16 00:35 NT-Pro-B Natriuret Pep 1090 pg/mL (0-900) H 11/26/16 01:07 Total Protein 6.4 g/dL (6.3-8.2) 11/27/16 04:26 Albumin 2.9 g/dL (3.9-5) L 11/27/16 04:26 Albumin/Globulin Ratio 0.8 % 11/27/16 04:26 Triglycerides 155 mg/dL (2-149) H 11/26/16 00:58 Cholesterol 150 mg/dL (50-199) 11/26/16 00:58 LDL Cholesterol Direct 81 mg/dL (50-130) 11/26/16 00:58 HDL Cholesterol 38 mg/dL (40-59) L 11/26/16 00:58 Cholesterol/HDL Ratio 3.94 % 11/26/16 00:58 Urine Color Red (Yellow) 11/26/16 02:47 Urine Turbidity Slightly-cloudy (Clear) 11/26/16 02:47 Urine pH 7.0 (5.0-7.0) 11/26/16 02:[address] [place] 1.025 (1.003-1.030) 11/26/16 02:47 Urine Protein 100 mg/dl mg/dL (Negative) 11/26/16 02:47 Urine Glucose (UA) Neg mg/dL (Negative) 11/26/16 02:47 Urine Ketones Neg mg/dL (Negative) 11/26/16 02:47 Urine Blood Lg (Negative) 11/26/16 02:47 Urine Nitrite Pos (Negative) 11/26/16 02:47 Urine Bilirubin Neg (Negative) 11/26/16 02:47 Urine Urobilinogen 4.0 mg/dL (<2.0) 11/26/16 02:47 Ur Leukocyte Esterase Sm (Negative) 11/26/16 02:47 Urine WBC (Auto) 99.0 /HPF (0.0-6.0) H 11/26/16 02:47 Urine RBC (Auto) > 182.0 /HPF (0.0-6.0) 11/26/16 02:47 U Epithel Cells (Auto) 1.0 /HPF (0-13.0) 11/26/16 02:47 Urine Bacteria (Auto) 1+ /HPF (Negative) 11/26/16 02:47 Urine Mucus Few /HPF 11/26/16 02:47 Vancomycin Trough 20.3 ug/mL (5.0-20.0) H 11/29/16 04:27
[2016-12-03] MEDS: DUONEB 0.5 MG-3 MG/3 ML SOLN IH SCH ×4 (01:07→19:54)
[2016-12-03] MEDS: DILAUDID IV PRN ×5 (02:20→20:20)
[2016-12-03] MEDS: ROXICODONE PO PRN (06:01)
[2016-12-03] MEDS: LASIX PO SCH ×2 (06:02→17:30)
[2016-12-03] MEDS: VANCOMYCIN VIAL 1,250 MG in NACL 0.9% 250ML 250 ML IV SCH (06:02)
--- NOTE | 2016-12-03 10:11 | Progress Note ---
Assessment and Plan Current antibiotics: Ceftriaxone 2 grams IV q24h 11/26 --> Vancomcyin 1250mg IV q12h 11/26 --> ASSESSMENT: Audrey Ceron is a 56 year old man with end stage heart failure (EF 10-15%), COPD and alcohol abuse who was admitted to [facility] on 11/25/16 after leaving hospice care on 11/23/16. He said they informed him that he did not have much longer to live, he then decided to elope from hospice. He is now complaining of severe mid back pain with associated fevers. CT scan revealed diskitis at T8-T9 with paraspinal abnormal soft tissue. Problem list: 1. T8-T9 diskitis with paraspinal inflammation -Patient does have back pain with fevers. Ideally the best approach here would be to obtain aspiration at that spinal level or paraspinal area for culture to guide treatment. Without culture the only choice would be to treat empirically for the most common causes of diskitis/osteomyelitis. Would obtain neurosurgery input. -patient with continued back pain, would like the MRI to evaluate the T8-T9 diskitis, if fluid is present would ask IR to do an aspiration 2. Leukocytosis -Secondary to # 1 3. End stage heart failure -EF 10-15% PLAN: 1. Await results of biopsy from 12/02 2. If indeed he is serious about going back into hospice care and likely not give him long-term antibiotics as it would not change his course ultimately. 3. Follow up blood cultures (NGTD) 4. Continue vancomycin and ceftriaxone for now Mati Munoz MD [facility] Office: [phone] Subjective Date of service: 12/03/16 Principal diagnosis: T8-T9 diskitis Interval history: No change in back pain. Still "severe" and "those dilos are not helping." He now states that he wants to "go back to hospice but not the one he was at." ROS: No subjective fever or chills. No nausea, vomiting or diarrhea. No shortness of breath, cough or pleuritic chest pain Objective - Exam Narrative Exam: GENERAL: Well-developed, well-nourished appearing male who is alert and in no acute distress. Sitting in the chair complaining of pain. HEAD: Normocephalic. No lesions seen. EYES: Pupils are equal reactive to light and accommodation. There is no scleral icterus. Optic fundi are not examined. EARS: Tympanic membranes are normal. THROAT: Oropharynx is normal with no evidence of oral candidiasis or pharyngitis. Poor dentition with multiple missing teeth NECK: Supple. No enlargement of the thyroid gland. No significant cervical lymphadenopathy. No jugular venous distention at 30. LUNGS: Clear with no adventitious sounds. HEART: Regular rate. S1 and S2 are normal. There are no murmurs, gallops, clicks or rubs heard. ABDOMEN: Soft and nontender. Liver and spleen are not palpably enlarged or tender. No palpable masses. Bowel sounds are normoactive. EXTREMITIES: No rash, peripheral lymphadenopathy, clubbing or edema. Some tenderness to palpation over lower back with no other objective findings. : Not examined NEUROLOGIC: No focal findings. - Constitutional Vitals: Vital Signs Temp Pulse Resp BP Pulse Ox 97.8 F 45 L 18 168/94 97 12/03/16 07:00 12/03/16 08:06 12/03/16 08:06 12/03/16 07:00 12/03/16 08:00 Temperature -Last 24 Hours Temperature 97.8 F Temperature 98.2 F Temperature 96.9 F Temperature 97.6 F Temperature 97.6 F - Labs CBC & Chem 7: 12/02/16 07:52 12/02/16 07:52 Labs: Abnormal lab results 12/03/16 Range/Units 04:32 Vancomycin Trough 23.8 H (5.0-20.0) ug/mL Microbiology 12/02/16 10:00 Other (Please Specify:) - Spine aspirate culture pending. Gram stain with many PMNs, moderate monos 11/26/16 01:41 Peripheral/Venous Blood Culture - Final NO GROWTH AFTER 5 DAYS 11/26/16 01:41 Peripheral/Venous Blood Culture - Final NO GROWTH AFTER 5 DAYS 11/26/16 02:20 Nasopharyngeal Swab Influenza Types A,B Antigen (CHRISTA) - Negative
[2016-12-03] MEDS: ROCEPHIN/NS 2 GM/100 ML 100 ML IV SCH (10:30)
[2016-12-03] MEDS: LOPRESSOR PO SCH ×2 (10:30→22:35)
[2016-12-03] MEDS: IMDUR PO SCH (10:30)
[2016-12-03] MEDS: HEPARIN SUB-Q SCH ×2 (10:30→22:15)
[2016-12-03] MEDS: ASPIRIN PO SCH (10:30)
[2016-12-03] MEDS ORDERED: ROXICODONE PO PRN (10:55)
[2016-12-03] MEDS: NORVASC PO SCH (10:58)
[2016-12-03] MEDS: MS CONTIN ER PO SCH (12:03)
--- NOTE | 2016-12-03 12:16 | Progress Note ---
Assessment and Plan Assessment and plan: Patient is a 56-year-old man with a history of cardiomyopathy, CHF with EF 10-15 %, COPD and alcohol abuse who presented with severe LBP with associated fevers, Ct scan revealed t8-t9 discitis with paraspinal abnormal soft tissue. He was admitted to [facility] on 11/25/16 after leaving hospice care on 11/23/16. The patient informs me that he knows this time is short as he was told that he did not have much longer to live. He stated that he left the hospice because it was too far and the people did not treat him well. Initial attempt to transfer the patient to [place] was unsuccessful. Patient tells me that he wants to go back Hospice. Does not want to pursue any further treatment. He's remained afebrile. Discussed with infectious diseases physician he is not a candidate for long- term antibiotics if he indeed that he wants to go back to hospice. 1. T8-T9 discitis- Continue Antibiotics, patient now wants to go back to Hospice, will discontinue antibiotics on transfer, The patient was discharged but appears he does not have a home to go to. Continue to follow pathology report 2. hypertension. Stable continue current therapy 3. Acute on chronic combined heart failure 4. End-stage cardiomyopathy 5. Low back pain-continue pain control 6. DVT/GI Prophy 7. Discussed with case management initial attempt for discharge yesterday was unsuccessful as they address the patient provided was a home that has been deemed unlivable and has been boarded up. Currently awaiting referral that has been sent out on the hospice teams. History Interval history: Follow-up discitis Patient seen and examined this morning in no acute distress, continues to complain of low back pain States current medications not helping. Denies any chest pain, nausea, vomiting, diarrhea No fever noted blood pressure controlled No adverse events reported to me by nursing staff Hospitalist Physical - Physical exam Narrative exam: VITAL SIGNS: Reviewed. GENERAL: The patient appeared well nourished and normally developed. Vital signs as documented. HEAD: No signs of head trauma. EYES: Pupils are equal. Extraocular motions intact. EARS: Hearing grossly intact. MOUTH: Oropharynx is normal. NECK: No adenopathy, no JVD. CHEST: Chest with clear breath sounds bilaterally. No wheezes, rales, or rhonchi. CARDIAC: Regular rate and rhythm. S1 and S2, without murmurs, gallops, or rubs. VASCULAR: No Edema. Peripheral pulses normal and equal in all extremities. ABDOMEN: Soft, without detectable tenderness. No sign of distention. No rebound or guarding, and no masses palpated. Bowel Sounds normal. MUSCULOSKELETAL: Good range of motion of all major joints. Extremities without clubbing, cyanosis or edema. NEUROLOGIC EXAM: Alert and oriented x 3. No focal sensory or strength deficits. Speech normal. Follows commands. PSYCHIATRIC: Mood normal. SKIN: No rash or lesions. - Constitutional Vitals: Temp Pulse Resp BP Pulse Ox 97.8 F 45 L 18 168/94 97 12/03/16 07:00 12/03/16 08:06 12/03/16 08:06 12/03/16 07:00 12/03/16 08:00 General appearance: Present: mild distress, well-nourished, obese Results - Labs CBC & Chem 7: 12/02/16 07:52 12/02/16 07:52 Labs: Laboratory Last Values WBC 14.3 K/mm3 (4.5-11.0) H 12/02/16 07:52 RBC 4.66 M/mm3 (3.65-5.03) 12/02/16 07:52 Hgb 12.4 gm/dl (11.8-15.2) 12/02/16 07:52 Hct 39.3 % (35.5-45.6) D 12/02/16 07:52 MCV 84 fl (84-94) 12/02/16 07:52 MCH 27 pg (28-32) L 12/02/16 07:52 MCHC 32 % (32-34) 12/02/16 07:52 RDW 19.9 % (13.2-15.2) H 12/02/16 07:52 Plt Count 376 K/mm3 (140-440) 12/02/16 07:52 Lymph % (Auto) 7.0 % (13.4-35.0) L 11/27/16 04:26 [place] % (Auto) 3.5 % (0.0-7.3) 11/27/16 04:26 Eos % (Auto) 0.0 % (0.0-4.3) 11/27/16 04:26 Baso % (Auto) 0.1 % (0.0-1.8) 11/27/16 04:26 Lymph # 1.2 K/mm3 (1.2-5.4) 11/27/16 04:26 [place] # 0.6 K/mm3 (0.0-0.8) 11/27/16 04:26 Eos # 0.0 K/mm3 (0.0-0.4) 11/27/16 04:26 Baso # 0.0 K/mm3 (0.0-0.1) 11/27/16 04:26 Add Manual Diff Complete 11/30/16 04:30 Total Counted 100 11/30/16 04:30 Seg Neutrophils % [employer] 11/29/16 04:27 Seg Neuts % (Manual) 83.0 % (40.0-70.0) H 11/30/16 04:30 Band Neutrophils % 9.0 % 11/30/16 04:30 Lymphocytes % (Manual) 7.0 % (13.4-35.0) L 11/30/16 04:30 Reactive Lymphs % (Man) 0 % 11/30/16 04:30 Monocytes % (Manual) 1.0 % (0.0-7.3) 11/30/16 04:30 Eosinophils % (Manual) 0 % (0.0-4.3) 11/30/16 04:30 Basophils % (Manual) 0 % (0.0-1.8) 11/30/16 04:30 Metamyelocytes % 0 % 11/30/16 04:30 Myelocytes % 0 % 11/30/16 04:30 Promyelocytes % 0 % 11/30/16 04:30 Blast Cells % 0 % 11/30/16 04:30 Nucleated RBC % Not Reportable 11/30/16 04:30 Seg Neutrophils # 15.0 K/mm3 (1.8-7.7) H 11/27/16 04:26 Seg Neutrophils # Man 10.5 K/mm3 (1.8-7.7) H 11/30/16 04:30 Band Neutrophils # 1.1 K/mm3 11/30/16 04:30 Lymphocytes # (Manual) 0.9 K/mm3 (1.2-5.4) L 11/30/16 04:30 Abs React Lymphs (Man) 0.0 K/mm3 11/30/16 04:30 Monocytes # (Manual) 0.1 K/mm3 (0.0-0.8) 11/30/16 04:30 Eosinophils # (Manual) 0.0 K/mm3 (0.0-0.4) 11/30/16 04:30 Basophils # (Manual) 0.0 K/mm3 (0.0-0.1) 11/30/16 04:30 Metamyelocytes # 0.0 K/mm3 11/30/16 04:30 Myelocytes # 0.0 K/mm3 11/30/16 04:30 Promyelocytes # 0.0 K/mm3 11/30/16 04:30 Blast Cells # 0.0 K/mm3 11/30/16 04:30 WBC Morphology Not Reportable 11/30/16 04:30 Hypersegmented Neuts Not Reportable 11/30/16 04:30 Hyposegmented Neuts Not Reportable 11/30/16 04:30 Hypogranular Neuts Not Reportable 11/30/16 04:30 Smudge Cells Not Reportable 11/30/16 04:30 Toxic Granulation Not Reportable 11/30/16 04:30 Toxic Vacuolation Not Reportable 11/30/16 04:30 Dohle Bodies Not Reportable 11/30/16 04:30 Pelger-Huet Anomaly Not Reportable 11/30/16 04:30 Brittani Rods Not Reportable 11/30/16 04:30 Platelet Estimate Appears normal 11/30/16 04:30 Clumped Platelets Not Reportable 11/30/16 04:30 Plt Clumps, EDTA Not Reportable 11/30/16 04:30 Large Platelets Not Reportable 11/30/16 04:30 Giant Platelets Not Reportable 11/30/16 04:30 Platelet Satelliting Not Reportable 11/30/16 04:30 Plt Morphology Comment Not Reportable 11/30/16 04:30 RBC Morphology Not Reportable 11/30/16 04:30 Dimorphic RBCs Not Reportable 11/30/16 04:30 Polychromasia Not Reportable 11/30/16 04:30 Hypochromasia 1+ 11/30/16 04:30 Poikilocytosis Not Reportable 11/30/16 04:30 Anisocytosis 1+ 11/30/16 04:30 Microcytosis Not Reportable 11/30/16 04:30 Macrocytosis Not Reportable 11/30/16 04:30 Spherocytes Not Reportable 11/30/16 04:30 Pappenheimer Bodies Not Reportable 11/30/16 04:30 Sickle Cells Not Reportable 11/30/16 04:30 Target Cells Not Reportable 11/30/16 04:30 Tear Drop Cells Not Reportable 11/30/16 04:30 Ovalocytes Few 11/30/16 04:30 Helmet Cells Not Reportable 11/30/16 04:30 [place] Bodies Not Reportable 11/30/16 04:30 [place] Rings Not Reportable 11/30/16 04:30 Eliza Cells Not Reportable 11/30/16 04:30 Bite Cells Not Reportable 11/30/16 04:30 Crenated Cell Not Reportable 11/30/16 04:30 Elliptocytes Few 11/30/16 04:30 Acanthocytes (Spur) Not Reportable 11/30/16 04:30 Rouleaux Not Reportable 11/30/16 04:30 Hemoglobin C Crystals Not Reportable 11/30/16 04:30 Schistocytes Not Reportable 11/30/16 04:30 Malaria parasites Not Reportable 11/30/16 04:30 Willis Bodies Not Reportable 11/30/16 04:30 Hem Pathologist Commnt No 11/30/16 04:30 PT 13.3 Sec. (12.2-14.9) 11/26/16 01:07 INR 1.02 (0.87-1.13) 11/26/16 01:07 APTT 29.7 Sec. (24.2-36.6) 11/26/16 01:07 Sodium 138 mmol/L (137-145) 12/02/16 07:52 Potassium 4.3 mmol/L (3.6-5.0) 12/02/16 07:52 Chloride 96.4 mmol/L (98-107) L 12/02/16 07:52 Carbon Dioxide 32 mmol/L (22-30) H 12/02/16 07:52 Anion Gap 14 mmol/L 12/02/16 07:52 BUN 37 mg/dL (9-20) H 12/02/16 07:52 Creatinine 0.7 mg/dL (0.8-1.5) L 12/02/16 07:52 Estimated GFR > 60 ml/min 12/02/16 07:52 BUN/Creatinine Ratio 52.85 % 12/02/16 07:52 Glucose 120 mg/dL (75-100) H 12/02/16 07:52 Lactic Acid 2.2 mmol/L (0.7-2.0) H* 11/26/16 01:07 Calcium 8.3 mg/dL (8.4-10.2) L 12/02/16 07:52 Total Bilirubin 0.2 mg/dL (0.1-1.2) 11/27/16 04:26 AST 16 units/L (5-40) 11/27/16 04:26 ALT 11 units/L (7-56) 11/27/16 04:26 Alkaline Phosphatase 118 units/L (35-129) 11/27/16 04:26 Total Creatine Kinase 47 units/L (55-170) L 11/26/16 01:07 Troponin T 0.048 ng/mL (0.00-0.029) H 11/26/16 00:58 C-Reactive Protein 0.20 mg/dL (0.00-1.30) 12/01/16 00:35 NT-Pro-B Natriuret Pep 1090 pg/mL (0-900) H 11/26/16 01:07 Total Protein 6.4 g/dL (6.3-8.2) 11/27/16 04:26 Albumin 2.9 g/dL (3.9-5) L 11/27/16 04:26 Albumin/Globulin Ratio 0.8 % 11/27/16 04:26 Triglycerides 155 mg/dL (2-149) H 11/26/16 00:58 Cholesterol 150 mg/dL (50-199) 11/26/16 00:58 LDL Cholesterol Direct 81 mg/dL (50-130) 11/26/16 00:58 HDL Cholesterol 38 mg/dL (40-59) L 11/26/16 00:58 Cholesterol/HDL Ratio 3.94 % 11/26/16 00:58 Urine Color Red (Yellow) 11/26/16 02:47 Urine Turbidity Slightly-cloudy (Clear) 11/26/16 02:47 Urine pH 7.0 (5.0-7.0) 11/26/16 02:47 Ur Specific [employer] 1.025 (1.003-1.030) 11/26/16 02:47 Urine Protein 100 mg/dl mg/dL (Negative) 11/26/16 02:47 Urine Glucose (UA) Neg mg/dL (Negative) 11/26/16 02:47 Urine Ketones Neg mg/dL (Negative) 11/26/16 02:47 Urine Blood Lg (Negative) 11/26/16 02:47 Urine Nitrite Pos (Negative) 11/26/16 02:47 Urine Bilirubin Neg (Negative) 11/26/16 02:47 Urine Urobilinogen 4.0 mg/dL (<2.0) 11/26/16 02:47 Ur Leukocyte Esterase Sm (Negative) 11/26/16 02:47 Urine WBC (Auto) 99.0 /HPF (0.0-6.0) H 11/26/16 02:47 Urine RBC (Auto) > 182.0 /HPF (0.0-6.0) 11/26/16 02:47 U Epithel Cells (Auto) 1.0 /HPF (0-13.0) 11/26/16 02:47 Urine Bacteria (Auto) 1+ /HPF (Negative) 11/26/16 02:47 Urine Mucus Few /HPF 11/26/16 02:47 Vancomycin Trough 23.8 ug/mL (5.0-20.0) H 12/03/16 04:32
[2016-12-03] MEDS: NACL 0.9% 1000 ML 1,000 ML IV SCH (16:30)
[2016-12-03] MEDS: VANCOMYCIN/NS 1 GM/250 ML 250 ML IV SCH (22:14)
[2016-12-04] MEDS: MS CONTIN ER PO SCH ×2 (01:53→10:03)
[2016-12-04] MEDS: DUONEB 0.5 MG-3 MG/3 ML SOLN IH SCH ×3 (02:56→13:55)
[2016-12-04] MEDS: DILAUDID IV PRN (05:30)
[2016-12-04] MEDS: LASIX PO SCH (05:31)
[2016-12-04] MEDS: ROCEPHIN/NS 2 GM/100 ML 100 ML IV SCH (10:01)
[2016-12-04] MEDS: ASPIRIN PO SCH (10:02)
--- NOTE | 2016-12-04 10:02 | Progress Note ---
Assessment and Plan Current antibiotics: Ceftriaxone 2 grams IV q24h 11/26 --> Vancomcyin 1250mg IV q12h 11/26 --> ASSESSMENT: Audrey Ceron is a 56 year old man with end stage heart failure (EF 10-15%), COPD and alcohol abuse who was admitted to [facility] on 11/25/16 after leaving hospice care on 11/23/16. He said they informed him that he did not have much longer to live, he then decided to elope from hospice. He is now complaining of severe mid back pain with associated fevers. CT scan revealed diskitis at T8-T9 with paraspinal abnormal soft tissue. Problem list: 1. T8-T9 diskitis with paraspinal inflammation -Patient does have back pain with fevers. Ideally the best approach here would be to obtain aspiration at that spinal level or paraspinal area for culture to guide treatment. Without culture the only choice would be to treat empirically for the most common causes of diskitis/osteomyelitis. Would obtain neurosurgery input. -patient with continued back pain, would like the MRI to evaluate the T8-T9 diskitis, if fluid is present would ask IR to do an aspiration 2. Leukocytosis -Secondary to # 1 3. End stage heart failure -EF 10-15% PLAN: 1. Await results of biopsy culture from 12/02 2. If indeed he is serious about going back into hospice care and likely not give him long-term antibiotics as it would not change his course ultimately. 3. Follow up blood cultures (NGTD) 4. Continue vancomycin and ceftriaxone for now Mati Munoz MD [facility] Office: [phone] Subjective Date of service: 12/04/16 Principal diagnosis: T8-T9 diskitis Interval history: Complains of uncontrolled back pain. No new complaints. ROS: No subjective fever or chills. No nausea, vomiting or diarrhea. No shortness of breath, cough or pleuritic chest pain Objective - Exam Narrative Exam: GENERAL: Well-developed, well-nourished appearing male who is alert and in no acute distress. Sitting in the chair complaining of pain. HEAD: Normocephalic. No lesions seen. EYES: Pupils are equal reactive to light and accommodation. There is no scleral icterus. Optic fundi are not examined. EARS: Tympanic membranes are normal. THROAT: Oropharynx is normal with no evidence of oral candidiasis or pharyngitis. Poor dentition with multiple missing teeth NECK: Supple. No enlargement of the thyroid gland. No significant cervical lymphadenopathy. No jugular venous distention at 30. LUNGS: Clear with no adventitious sounds. HEART: Regular rate. S1 and S2 are normal. There are no murmurs, gallops, clicks or rubs heard. ABDOMEN: Soft and nontender. Liver and spleen are not palpably enlarged or tender. No palpable masses. Bowel sounds are normoactive. EXTREMITIES: No rash, peripheral lymphadenopathy, clubbing or edema. Some tenderness to palpation over lower back with no other objective findings. : Not examined NEUROLOGIC: No focal findings. - Constitutional Vitals: Vital Signs Temp Pulse Resp BP Pulse Ox 98.3 F 43 L 18 128/72 96 12/04/16 08:00 12/04/16 08:16 12/04/16 08:16 12/04/16 08:00 12/04/16 08:10 Temperature -Last 24 Hours Temperature 98.3 F Temperature 98.7 F Temperature 98.2 F - Labs CBC & Chem 7: 12/02/16 07:52 12/02/16 07:52 Labs: Microbiology 12/02/16 10:00 Other (Please Specify:) - Spine aspirate culture NGTD. Gram stain with many PMNs, moderate monos 11/26/16 01:41 Peripheral/Venous Blood Culture - Final NO GROWTH AFTER 5 DAYS 11/26/16 01:41 Peripheral/Venous Blood Culture - Final NO GROWTH AFTER 5 DAYS 11/26/16 02:20 Nasopharyngeal Swab Influenza Types A,B Antigen (CHRISTA) - Negative 12/02: Disk space aspirate path: NOS, No malignancy
[2016-12-04] MEDS: LOPRESSOR PO SCH (10:04)
[2016-12-04] MEDS: IMDUR PO SCH (10:04)
[2016-12-04] MEDS: NORVASC PO SCH (10:05)
[2016-12-04] MEDS: VANCOMYCIN/NS 1 GM/250 ML 250 ML IV SCH (10:05)
[2016-12-04] MEDS: HEPARIN SUB-Q SCH (10:06)
[2016-12-04] MEDS ORDERED: MS CONTIN ER PO ONE (11:00)
--- NOTE | 2016-12-04 13:56 | Discharge Summary ---
Providers - Providers Date of Admission: 11/26/16 09:57 Date of discharge: 12/04/16 Attending physician: GEETHA TORREZ MD Primary care physician: DISASTER [employer]OL SPECIALIST Hospitalization Reason for admission: fever Condition: Stable Hospital course: Patient is a 56-year-old man with a history of cardiomyopathy, CHF with EF 10-15 %, COPD and alcohol abuse who presented with severe LBP with associated fevers, Ct scan revealed t8-t9 discitis with paraspinal abnormal soft tissue. He was admitted to [facility] on 11/25/16 after leaving hospice care on 11/23/16. The patient informs me that he knows this time is short as he was told that he did not have much longer to live. He stated that he left the hospice because it was too far and the people did not treat him well. Initial attempt to transfer the patient to [place] was unsuccessful. Patient tells me that he wants to go back Hospice. Does not want to pursue any further treatment. He's remained afebrile. Discussed with infectious diseases physician he is not a candidate for long- term antibiotics if he indeed that he wants to go back to hospice. Discharge diagnosis 1. T8-T9 discitis 2. hypertension. 3. Acute on chronic combined heart failure 4. End-stage cardiomyopathy 5. Low back pain-continue pain control 6. Bradycardia Disposition: DISCHARGED TO HOME OR SELFCARE Time spent for discharge: 35 mins Core Measure Documentation - Palliative Care Palliative Care/ Comfort Measures: Hospice Care - Core Measures Any of the following diagnoses?: none - VTE Discharge Requirements Deep Vein Thrombosis/Pulmonary Embolism Present on Admission: No Exam - Physical Exam Narrative exam: VITAL SIGNS: Reviewed. GENERAL: The patient appeared well nourished and normally developed. Vital signs as documented. HEAD: No signs of head trauma. EYES: Pupils are equal. Extraocular motions intact. EARS: Hearing grossly intact. MOUTH: Oropharynx is normal. NECK: No adenopathy, no JVD. CHEST: Chest with clear breath sounds bilaterally. No wheezes, rales, or rhonchi. CARDIAC: Regular rate and rhythm. S1 and S2, without murmurs, gallops, or rubs. VASCULAR: No Edema. Peripheral pulses normal and equal in all extremities. ABDOMEN: Soft, without detectable tenderness. No sign of distention. No rebound or guarding, and no masses palpated. Bowel Sounds normal. MUSCULOSKELETAL: Good range of motion of all major joints. Extremities without clubbing, cyanosis or edema. NEUROLOGIC EXAM: Alert and oriented x 3. No focal sensory or strength deficits. Speech normal. Follows commands. PSYCHIATRIC: Mood normal. SKIN: No rash or lesions. - Constitutional Vitals: Temp Pulse Resp BP Pulse Ox 98.3 F 43 L 18 128/72 96 12/04/16 08:00 12/04/16 08:16 12/04/16 08:16 12/04/16 08:00 12/04/16 08:10 Plan Diet: low cholesterol Follow up with: PRIMARY CARE, [Primary Care Provider] - 3-5 Days Prescriptions: amLODIPine [Norvasc] 10 mg PO QDAY #30 tablet oxyCODONE [Roxicodone TAB] 15 mg PO Q4H PRN #20 tablet PRN Reason: Pain, Moderate (4-6) Prednisone [predniSONE 10 mg (6-Day Pack, 21 Tabs)] 10 mg PO .TAPER #1 tab.ds.pk
[2016-12-04 13:58] VITALS: BP 124/72
[2016-12-04] MEDS ORDERED: MS CONTIN ER PO SCH (22:00)
== END 2016-12-04 13:57 | disposition home or self-care (01) | DRG 853 ==
LOC: ED 00:07 → 3A 09:57
PROVIDERS: ADMIT Internal Medicine; ATTEND Internal Medicine
PROC: 0PB43ZX Excision of Thoracic Vertebra, Percutaneous Approach, Diagnostic (ICD-10-PCS; principal; 2016-12-02)
DX: A41.9 Sepsis, unspecified organism (principal); J18.9 Pneumonia, unspecified organism; I50.43 Acute on chronic combined systolic (congestive) and diastolic (congestive) heart failure; J44.1 Chronic obstructive pulmonary disease with (acute) exacerbation; N39.0 Urinary tract infection, site not specified; J44.0 Chronic obstructive pulmonary disease with (acute) lower respiratory infection; I42.9 Cardiomyopathy, unspecified; I11.0 Hypertensive heart disease with heart failure; J20.9 Acute bronchitis, unspecified; M46.44 Discitis, unspecified, thoracic region; I25.10 Atherosclerotic heart disease of native coronary artery without angina pectoris; E87.5 Hyperkalemia; F10.10 Alcohol abuse, uncomplicated; R00.1 Bradycardia, unspecified; M19.90 Unspecified osteoarthritis, unspecified site; Z51.5 Encounter for palliative care; Z90.49 Acquired absence of other specified parts of digestive tract; Z86.73 Personal history of transient ischemic attack (TIA), and cerebral infarction without residual deficits; Z87.891 Personal history of nicotine dependence; Z82.49 Family history of ischemic heart disease and other diseases of the circulatory system
CPT/HCPCS: 20225; 36415; 71010; 71275; 72157; 74176; 76604; 77012; 80048; 80053; 80061; 80202; 81001; 82140; 82550; 83880; 84132; 84484; 85007; 85025; 85027; 85610; 85730; 86140; 87040; 87086; 87116; 87400; 88305; 88307; 88333; 93005; 93010; 94640; 94644; 94760; 96365; 96375; A9577; J0696; J1170; J1644; J1650; J2060; J2250; J2270; J2405; J2920; J2930; J3010; J3370; J7030; J7040; J7050; Q9967

== ENCOUNTER 2018-07-20 22:18 | Emergency (ER) | payer MEDICAID ==
[2018-07-20 23:34] LABS: Basophils % (Auto) 0.5 % (0.0-1.8); Eosinophils # (Auto) 0.4 K/mm3 (0.0-0.4); Eosinophils % (Auto) 4.1 % (0.0-4.3); Hematocrit 41.3 % (35.5-45.6); Hemoglobin 13.8 gm/dl (11.8-15.2); Lymphocytes # (Auto) 2.8 K/mm3 (1.2-5.4); Lymphocytes % (Auto) 31.5 % (13.4-35.0); Mean Corpuscular HGB Conc 33 % (32-34); Mean Corpuscular Hemoglobin 32 pg (28-32); Mean Corpuscular Volume 95 fl (84-94); Monocytes # (Auto) 0.7 K/mm3 (0.0-0.8); Monocytes % (Auto) 8.3 % (0.0-7.3); Platelet Count 248 K/mm3 (140-440); Red Blood Count 4.33 M/mm3 (3.65-5.03); Red Cell Distribution Width 13.7 % (13.2-15.2)
[2018-07-20 23:45] LABS: Bacteria,Urine 2+ /HPF (Negative); Bilirubin,Urine NEG (Negative); Blood,Urine MOD (Negative); Color,Urine Amber (Yellow); Mucus,Urine FEW /HPF; Urobilinogen,Urine < 2.0 mg/dL (<2.0)
[2018-07-20 23:47] LABS: WBC,Urine > 182.0 /HPF (0.0-6.0)
[2018-07-20 23:54] LABS: Albumin 4.2 g/dL (3.9-5); Calcium 8.8 mg/dL (8.4-10.2)
[2018-07-21] MEDS ORDERED: TYLENOL ONE (04:22)
[2018-07-21] MEDS ORDERED: TYLENOL PO ONE (06:09)
[2018-07-21] MEDS ORDERED: MORPHINE IV ONE (07:00)
[2018-07-21] MEDS ORDERED: ZOFRAN ODT PO ONE (07:00)
[2018-07-21] MEDS ORDERED: LEVAQUIN PO ONE (07:01)
--- NOTE | 2018-07-21 07:05 | Emergency Department Report ---
ED General Adult HPI - General Chief complaint: Abdominal Pain Stated complaint: ABD AND BACK PAIN Time Seen by Provider: 07/21/18 06:52 Source: patient, EMS Mode of arrival: Stretcher Limitations: No Limitations - History of Present Illness Initial comments: Patient presents to the emergency department with a chief complaint of abdominal pain and burning with urination. Patient states he has a Watkins catheter which was placed last week and has had a comfortable sensation since that time. Patient is currently on hospice care for congestive heart failure and is taking ciprofloxacin for UTI. Patient denies any chest pain, shortness breath, headache. There are no other associated symptoms -: Gradual Location: abdomen Radiation: non-radiation Severity scale (0 -10): 3 Quality: burning, dull Consistency: constant Improves with: none Worsens with: none Associated Symptoms: denies other symptoms Treatments Prior to Arrival: none - Related Data Previous Rx's Medication Instructions Recorded Last Taken Type Aspirin [Aspirin TAB] 325 mg PO QDAY #30 tablet 06/13/16 1 Week Ago Rx ~11/24/16 Lisinopril [Zestril TAB] 20 mg PO QDAY #30 tablet 06/25/16 1 Week Ago Rx ~11/24/16 Metoprolol [Lopressor TAB] 25 mg PO BID #60 tablet 06/25/16 1 Week Ago Rx ~11/24/16 ISOSORBIDE MONOnitrate [Imdur ER] 30 mg PO QDAY #30 tablet 09/11/16 1 Week Ago Rx ~11/24/16 Furosemide [Lasix TAB] 40 mg PO BID #60 tablet 09/16/16 1 Week Ago Rx ~11/24/16 Furosemide [Lasix TAB] 40 mg PO 0600,1800 tablet 10/20/16 1 Week Ago Rx ~11/24/16 Prednisone [predniSONE 10 mg 10 mg PO .TAPER #1 tab.ds.pk 12/02/16 Unknown Rx (6-Day Pack, 21 Tabs)] amLODIPine [Norvasc] 10 mg PO QDAY #30 tablet 12/02/16 Unknown Rx oxyCODONE [Roxicodone TAB] 15 mg PO Q4H PRN #20 tablet 12/02/16 Unknown Rx Ciprofloxacin HCl [Cipro] 500 mg PO BID #10 tablet 07/15/18 Unknown Rx HYDROcodone/APAP 10-325 [[place] 1 each PO Q8HR PRN #8 tablet 07/21/18 Unknown Rx 10/325] levoFLOXacin [Levaquin TAB] 500 mg PO QDAY #7 tablet 07/21/18 Unknown Rx Allergies Allergy/AdvReac Type Severity Reaction Status Date / Time No Known Allergies Allergy Unverified 02/25/16 10:55 ED Review of Systems ROS: Stated complaint: ABD AND BACK PAIN Other details as noted in HPI Comment: All other systems reviewed and negative Constitutional: denies: chills, fever Eyes: denies: eye pain, eye discharge, vision change ENT: denies: ear pain, throat pain Respiratory: denies: cough, shortness of breath, wheezing Cardiovascular: denies: chest pain, palpitations Endocrine: no symptoms reported Gastrointestinal: abdominal pain. denies: nausea, diarrhea Genitourinary: denies: urgency, dysuria Musculoskeletal: denies: back pain, joint swelling, arthralgia Skin: denies: rash, lesions Neurological: denies: headache, weakness, paresthesias Psychiatric: denies: anxiety, depression Hematological/Lymphatic: denies: easy bleeding, easy bruising ED Past Medical Hx - Past Medical History Previous Medical History?: Yes Hx Hypertension: Yes Hx CVA: Yes Hx Congestive Heart Failure: Yes Hx Diabetes: No Hx Renal Disease: Yes Hx Arthritis: Yes Hx Asthma: Yes Hx COPD: Yes Hx HIV: No Additional medical history: Urinary retention - Surgical History Past Surgical History?: Yes Hx Cholecystectomy: Yes Additional Surgical History: Hernia, - Social History Smoking Status: Never Smoker Substance Use Type: None - Medications Home Medications: Home Medications Medication Instructions Recorded Confirmed Last Taken Type Aspirin [Aspirin TAB] 325 mg PO QDAY #30 tablet 06/13/16 12/01/16 1 Week Ago Rx ~11/24/16 Lisinopril [Zestril TAB] 20 mg PO QDAY #30 tablet 06/25/16 12/01/16 1 Week Ago Rx ~11/24/16 Metoprolol [Lopressor TAB] 25 mg PO BID #60 tablet 06/25/16 12/01/16 1 Week Ago Rx ~11/24/16 ISOSORBIDE MONOnitrate [Imdur ER] 30 mg PO QDAY #30 tablet 09/11/16 12/01/16 1 Week Ago Rx ~11/24/16 Furosemide [Lasix TAB] 40 mg PO BID #60 tablet 09/16/16 12/01/16 1 Week Ago Rx ~11/24/16 Furosemide [Lasix TAB] 40 mg PO 0600,1800 tablet 10/20/16 12/01/16 1 Week Ago Rx ~11/24/16 Prednisone [predniSONE 10 mg 10 mg PO .TAPER #1 tab.ds.pk 12/02/16 Unknown Rx (6-Day Pack, 21 Tabs)] amLODIPine [Norvasc] 10 mg PO QDAY #30 tablet 12/02/16 Unknown Rx oxyCODONE [Roxicodone TAB] 15 mg PO Q4H PRN #20 tablet 12/02/16 Unknown Rx Ciprofloxacin HCl [Cipro] 500 mg PO BID #10 tablet 07/15/18 Unknown Rx HYDROcodone/APAP 10-325 [[place] 1 each PO Q8HR PRN #8 tablet 07/21/18 Unknown Rx 10/325] levoFLOXacin [Levaquin TAB] 500 mg PO QDAY #7 tablet 07/21/18 Unknown Rx ED Physical Exam - General Limitations: No Limitations General appearance: alert, in no apparent distress - Head Head exam: Present: atraumatic, normocephalic - Eye Eye exam: Present: normal appearance, PERRL, EOMI - ENT ENT exam: Present: mucous membranes moist - Neck Neck exam: Present: normal inspection - Respiratory Respiratory exam: Present: normal lung sounds bilaterally. Absent: respiratory distress, wheezes, rales - Cardiovascular Cardiovascular Exam: Present: regular rate, normal rhythm. Absent: systolic murmur, diastolic murmur, rubs, gallop - GI/Abdominal GI/Abdominal exam: Present: soft, normal bowel sounds. Absent: distended, tenderness - Rectal Rectal exam: Present: deferred - Extremities Exam Extremities exam: Present: normal inspection - Back Exam Back exam: Present: normal inspection - Neurological Exam Neurological exam: Present: alert, oriented X3, CN II-XII intact. Absent: motor sensory deficit - Psychiatric Psychiatric exam: Present: normal affect, normal mood - Skin Skin exam: Present: warm, dry, intact, normal color. Absent: rash ED Course Vital Signs 07/20/18 07/21/18 07/21/18 23:00 04:02 08:06 Temperature 99.2 F 97.9 F 97.7 F Pulse Rate 75 53 L 58 L Respiratory 20 20 18 Rate Blood Pressure 112/76 110/73 Blood Pressure 141/76 [Right] O2 Sat by Pulse 96 95 94 Oximetry 07/21/18 08:16 Temperature Pulse Rate Respiratory 18 Rate Blood Pressure Blood Pressure [Right] O2 Sat by Pulse 94 Oximetry ED Medical Decision Making - Lab Data Result diagrams: 07/20/18 23:04 07/20/18 23:04 - Medical Decision Making Spoke with the patient's hospice nurse Nurse Ciara and discussed the patient' s laboratory findings of her creatinine to 1.8 and my concerns of given the patient to much fluid and wanted to treat him conservatively. She then contacted Dr. Prajapati spoke with the phone at 7:20 AM and was decided that we would give the patient 500 mL of fluid here and they will continue to give fluids daily at hospice with reevaluation of his labs. Dr. Prajapati also discuss the pain treatment of the patient overnight which included multiple doses of morphine. Discussed with Dr. Prajapati upon me seeing the patient was resting comfortably and appeared to be in any discomfort. Dr. Prajapati also agreed that there was no need to have the patient to the hospital. Victorina's okay with the patient didn't discharged Levaquin and we will get cultures for sensitivity Patient was moved from a hallway bed to room 18 for urogenital exam. I was chaperoned by nurse Nic RN. External genitalia within normal limits without any signs of abrasions or lesions. The Watkins catheter is in place the meatus does not show any lacerations. Patient then shows me a picture from a piece of paper he has described marroquin pain is located and he points to where the bladder is located and the collar aspect of the prostate. Critical care attestation.: If time is entered above; I have spent that time in minutes in the direct care of this critically ill patient, excluding procedure time. ED Disposition Clinical Impression: UTI (urinary tract infection), Cystitis, Acute renal insufficiency Disposition: DC-01 TO HOME OR SELFCARE Is pt being admited?: No Does the pt Need Aspirin: No Condition: Stable Instructions: Urinary Tract Infection in Men (ED), Watkins Catheter Placement and Care (ED) Additional Instructions: return if worse Prescriptions: HYDROcodone/APAP 10-325 [[place] 10/325] 1 each PO Q8HR PRN #8 tablet PRN Reason: Pain levoFLOXacin [Levaquin TAB] 500 mg PO QDAY #7 tablet Referrals: PRIMARY CARE, [Primary Care Provider] - 3-5 Days KRISHAN BROOKS MD [Staff Physician] - 7-10 days BECKY JAVIER MD [Staff Physician] - 3-5 Days Time of Disposition: 09:09
[2018-07-21] MEDS ORDERED: NACL 0.9% 500 ML 500 ML IV ONE (07:22)
[2018-07-21 08:07] VITALS: BP 141/76
== END 2018-07-21 09:51 | disposition home or self-care (01) ==
LOC: ED 22:18
DX: N30.90 Cystitis, unspecified without hematuria (principal); N28.9 Disorder of kidney and ureter, unspecified; I11.0 Hypertensive heart disease with heart failure; I50.9 Heart failure, unspecified; M19.90 Unspecified osteoarthritis, unspecified site; J44.9 Chronic obstructive pulmonary disease, unspecified; Z86.73 Personal history of transient ischemic attack (TIA), and cerebral infarction without residual deficits; Z90.49 Acquired absence of other specified parts of digestive tract; Z79.82 Long term (current) use of aspirin
CPT/HCPCS: 36415; 80053; 81001; 85025; 87086; 96374; 99284; J2270; J7040; Q0162

== ENCOUNTER 2019-01-24 10:47 | Outpatient (CLI) | payer MEDICAID ==
[2019-01-24 11:19] LABS: Hematocrit 44.8 % (35.5-45.6); Hemoglobin 15.5 gm/dl (11.8-15.2); Mean Corpuscular HGB Conc 35 % (32-34); Mean Corpuscular Volume 90 fl (84-94); Platelet Count 293 K/mm3 (140-440); Red Blood Count 4.96 M/mm3 (3.65-5.03); Red Cell Distribution Width 14.9 % (13.2-15.2)
[2019-01-24 11:38] LABS: Albumin 4.6 g/dL (3.9-5); Calcium 9.7 mg/dL (8.4-10.2); Chol/HDL Ratio 4.13 %
== END 2019-01-24 10:48 | disposition home or self-care (01) ==
LOC: LAB 10:47
PROVIDERS: ATTEND Internal Medicine
DX: Z00.01 Encounter for general adult medical examination with abnormal findings (principal); I11.0 Hypertensive heart disease with heart failure; I50.9 Heart failure, unspecified; R73.9 Hyperglycemia, unspecified; J44.9 Chronic obstructive pulmonary disease, unspecified; M19.90 Unspecified osteoarthritis, unspecified site; Z90.49 Acquired absence of other specified parts of digestive tract; Z87.891 Personal history of nicotine dependence
CPT/HCPCS: 36415; 80053; 80061; 82306; 82607; 83036; 84153; 84443; 85027